=== PATIENT | male | born 1960 | race African-American/Black ===

== ENCOUNTER 2022-12-09 20:55 | Observation (INO) | payer OTHER, SELFPAY ==
--- NOTE | ~2022-12-09 | US_ITS ---
US thoracentesis DATE: 12/11/2022 09:53 INDICATION: Left pleural effusion TECHNIQUE: The purpose of the procedure, technique and potential complications were discussed with e patient. The patient verbalized understanding and gave consent. The patient indicated he has had th is procedure performed on the right side in [place]. An appropriate site for lower left posterolateral intercostal percutaneous access was identified by jered russell. The skin was periosteal Betadine solution. Sterile drape was applied. 1% lidocaine local a nesthetic was administered to the skin and underlying subcutaneous tissues. A single stick thoracente sis needle/catheter was introduced into the pleural space, yielding clear yellow pleural fluid. A sma ll sample was collected for pH determination. Subsequently, 800 CC was drained into vacuum container. The patient tolerated the procedure very well, without complaint or apparent complication. Follow-up chest radiograph reveals no evidence of pneumothorax. IMPRESSION: Successful left thoracentesis yielding 800 CC clear yellow pleural fluid Reviewed, dictated and finalized at [facility]. Reviewed, dictated and finalized at [facility].
--- NOTE | ~2022-12-09 | CT_ITS ---
EXAMINATION: CT diagnostic chest wo con DATE: 12/10/2022 02:20 INDICATION: Left pleural effusion. History of esophageal cancer. TECHNIQUE: Computed tomography (CT) of the chest was performed without intravenous contrast. Automate d exposure control and iterative reconstruction technique were employed. Exam dose: 184.48 mGy-cm to tasneem exam DLP. COMPARISON: 12/09/2022 portable AP chest FINDINGS: Postoperative change from esophagectomy/gastric pull-through for history of esophageal cancer. Normal heart size. No pericardial effusion. Thoracic aortic ectasia and calcification including calci fication of the ascending aorta and aortic arch. There is moderate emphysematous changes of the lungs. There is mild dependent right lower lobe atelectasis. There is greater compressive lower lobe atelectasis associated with mild/moderate left pleural effusi on, in addition to mild lingular basilar atelectasis. No suspicious osteolytic or osteoblastic lesions are noted. Upper abdominal structures are not optimally evaluated on this limited noncontrast examination. IMPRESSION: Status post esophagectomy and gastric pull-through for esophageal cancer Mild/moderate left pleural effusion Moderate emphysema Mild dependent right lower lobe and lingula atelectasis and greater left lower lobe atelectasis Reviewed, dictated and finalized at [facility]. Reviewed, dictated and finalized at [facility].
--- NOTE | ~2022-12-09 | XR_ITS ---
XR_[id number] DATE: 12/11/2022 09:35 INDICATION: Post left thoracentesis examination TECHNIQUE: Upright AP chest on 12/11/2022 at 0935 hours COMPARISON: 12/09/2022 portable AP chest FINDINGS: There is diminished left pleural effusion, with slight residual blunting of the left costop hrenic angle since 12/09/2022. There is mild but diminished atelectasis at the left lung base. Right lung appears clear. The right costophrenic angle appears normal. Normal heart size. Aortic arch calcification, mild aortic unfolding. Surgical clips overlie the left heart and mediastinum. IMPRESSION: Diminished left pleural effusion, diminished atelectasis at the left lung base and no lef t pneumothorax following left thoracentesis a short while ago today Reviewed, dictated and finalized at [facility]. Reviewed, dictated and finalized at [facility]. IMPRESSION: Diminished left pleural effusion, diminished atelectasis at the lef t lung base and no left pneumothorax following left thoracentesis a short while ago today
--- NOTE | ~2022-12-09 | XR_ITS ---
MODIFIED ESOPHAGRAM HISTORY: Dysphagia. TECHNIQUE: Modified barium esophagram was performed on . I administered fluoroscopy and performed the exam with speech pathologist. Patient was seated for lateral fluoroscopic imaging for ingestion of thin liquids, pudding, solids and quantified amounts, followed by thin liquids in uncontrolled amount s. This was recorded on tape. A single fluoroscopic spot image was also recorded. The DAP for this pr ocedure was 0.666 Gycm2. The amount of fluoroscopy time used during this procedure was 1.0 minutes. FINDINGS: Oral stage: Adequate function. Pharyngeal stage: Mild spillage of material over the base of the tongue into the vallecula and pirifo rm sinus immediately prior to the swallow. No laryngeal penetration or aspiration. Cervical/esophageal stage: Adequate function. IMPRESSION: Patient tolerated regular consistency oral feedings in the upright position. Please lissa elate with speech pathologist findings and specific feeding recommendations. Reviewed, dictated and finalized at [facility]. IMPRESSION: Patient tolerated regular consistency oral feedings in the upright position. Please correlate with speech pathologist findings and specific feedi ng recommendations.
--- NOTE | ~2022-12-09 | US_ITS ---
US abdomen limited DATE: 12/11/2022 09:53 INDICATION: Elevated liver function tests TECHNIQUE: Real-time imaging of liver, pancreas, gallbladder COMPARISON: CT chest FINDINGS: The pancreas is obscured by bowel. No hepatic space-occupying mass lesion is evident. Normal hepatopedal portal venous flow direction. The common bile duct measures 2.1 mm, normal. The gallbladder appears to be contracted. No gallstones are evident. Mild ascites. IMPRESSION: Mild ascites Reviewed, dictated and finalized at [facility]. Reviewed, dictated and finalized at location [facility]. IMPRESSION: Mild ascites
--- NOTE | ~2022-12-09 | XR_ITS ---
EXAMINATION: XR chest 1V portable Exam Date/Time: 12/09/2022 21:39 CDT HISTORY: weakness, HTN, DIABETIC Comparison: None. RESULT: Lines, tubes, and devices: Surgical clips overlie the mediastinum. Lungs and pleura: Subsegmental left basilar opacities. Moderate left costophrenic angle blunting. Cardiomediastinal silhouette: Stable. Other: No acute osseous or upper abdominal finding. IMPRESSION: Left basilar airspace disease, likely representing atelectasis. Infection is not excluded. Moderate l eft pleural effusion. Reviewed, dictated and finalized at [facility]. IMPRESSION: Left basilar airspace disease, likely representing atelectasis. Infection is no t excluded. Moderate left pleural effusion.
--- NOTE | 2022-12-09 20:58 | ECG_ITS ---
Measurements Intervals [place] Rate: 40 P: 227 [place]: 141 QRS: -15 QRSD: 88 T: 32 QT: 488 QTc: 400 Interpretive Statements MARKED SINUS BRADYCARDIA PROBABLE ANTEROSEPTAL SC, AGE UNDETERMINED NONSPECIFIC T-WAVE ABNORMALITY ABNORMAL ECG NO PREVIOUS ECG AVAILABLE FOR COMPARISON Electronically Signed On 12-10-2022 9:15:[address] M.D.
[2022-12-09 21:02] VITALS: BP 113/89; PULSE 48; RESP 18; TEMP 36.2; O2SAT 100
[2022-12-09 21:15] VITALS: BP 105/88; PULSE 42; RESP 16; O2SAT 100
[2022-12-09 21:15] LABS: Glucose Point of Care 72 mg/dl (65-105)
[2022-12-09] MEDS: DEXTROSE 50% 25 GM/50 ML SYRINGE IV PUSH (21:18)
[2022-12-09] MEDS: SODIUM CHLORIDE 0.9% IV 1,000 ML 999 ML (21:34)
[2022-12-09 21:41] LABS: Basophils Percent Auto 1.6 % (0.2-1.2); Eosinophils Percent Auto 1.2 % (0-4.4); Hematocrit 26.6 % (42.0-52.0); Hemoglobin 9.3 g/dL (14.0-18.0); Immature Granulocyte Absolute 0.01 K/mm3 (0.00-0.031); Immature Granulocyte Percent A 0.4 % (0-0.5); Lymphocytes Percent Auto 27.9 % (18.3-44.2); Mean Corpuscular Hemoglobin 33.5 pg (26-34); Mean Corpuscular Volume 95.7 fl (80-100); Mean Platelet Volume 9.9 fl (7.4-10.4); Monocytes Absolute Auto 0.3 K/mm3 (0.1-0.6); Monocytes Percent Auto 10.4 % (2.6-8.5); Neutrophils Absolute Auto 1.5 K/mm3 (1.3-6.7); Neutrophils Percent Auto 58.5 % (45.5-73.1); Platelet Count Result 224 k/mm3 (150-375); Red Blood Count 2.78 M/mm3 (4.6-6.20); Red Cell Distribution Width 16.6 % (11.5-14.5); White Blood Count 2.5 K/mm3 (4.5-10.0)
[2022-12-09 21:52] LABS: Alanine Aminotransferase 323 U/L (6-50); Albumin Level 3.3 g/dL (3.5-5.1); Alkaline Phosphatase 160 U/L (38-126); Anion Gap 3 mmol/L (8-16); Aspartate Amino Transferase 394 U/L (17-59); Bilirubin,Total 0.4 mg/dL (0.2-1.3); Blood Urea Nitrogen 10 mg/dL (9-20); Calcium 8.2 mg/dL (8.4-10.2); Carbon Dioxide 26 mmol/L (22-30); Chloride 104 mmol/L (98-107); Estimated CRCL calculation 51 ml/min; Estimated Glomerular Filt Rate > 60; Glucose 99 mg/dL (65-110); INR 1.1; Magnesium 1.9 mg/dL (1.6-2.3); Potassium 3.7 mmol/L (3.4-5.0); Prothrombin Time 14.7 Seconds (11.1-14.7); Sodium 133 mmol/L (137-145)
[2022-12-09 21:53] LABS: Partial Thromboplastin Time 30.9 SECONDS (22.3-36.8)
[2022-12-09 22:03] LABS: NT Pro B Type Natriuretic Pept 452 pg/mL (19.9-100); Troponin I < 0.012 ng/mL (0.000-0.034)
[2022-12-09 22:43] LABS: Glucose Point of Care 118 mg/dl (65-105)
[2022-12-09 23:00] VITALS: BP 122/87; PULSE 42; RESP 15; O2SAT 100
[2022-12-09 23:28] LABS: Lactic Acid Reflex 0.7 mmol/L (0.7-2.0)
--- NOTE | 2022-12-09 23:29 | ED.GENADULT ---
HPI - General Adult General Chief complaint: Recheck/Abnormal Lab/Rx Stated complaint: low glucose Time Seen by Provider: 12/09/22 21:04 History of Present Illness HPI narrative: Patient is a 62-year-old gentleman who presents the emergency department with chief complaint of weakness slow heart rate and hypoglycemia. The patient is currently visiting from the [facility] and reports that he has history of prostate cancer and also gastric cancer has had a revision and reports that he takes oral medications for his diabetes and today felt extremely weak and was having chills over his body the patient reports no vomiting no chest pain no shortness of breath reports that he just feels weak and rundown. When EMS was called they found to have a blood sugar in the 50s he was given D10 prior to arrival by EMS and blood sugars were still in the 60s and 70s the patient was given amp of D50 in the emergency department here Related Data Allergies Allergy/AdvReac Type Severity Reaction Status Date / Time No Known Allergies Allergy Verified 12/09/22 21:17 Review of Systems Review of Systems: A 10 system review of systems was completed on the patient and is negative except for what is stated in the HPI. Nursing and ancillary documentation was reviewed. Exam Narrative: GENERAL: Well-appearing, well-nourished, and in no acute distress. HEAD: Normocephalic, atraumatic. EYES: PERRLA and EOMI. ENT: Nares clear, no rhinorrhea or epistaxis. Mucous membranes moist. NECK: Supple. CHEST: Clear to auscultation. No respiratory distress. HEART: Irregular bradycardic rate and rhythm. No murmur heard. Normal peripheral pulses. ABDOMEN: Soft, nontender, nondistended, normal active bowel sounds. EXTREMITIES: Normal range of motion. No edema. SKIN: Warm, dry, no rash. NEURO: No focal deficits. Alert and oriented x3. PSYCH: Normal mood and affect. Course Vital Signs Vital signs: Vital Signs Temperature 36.2 C L 12/09/22 21:02 Pulse Rate 48 L 12/09/22 21:02 Respiratory Rate 18 12/09/22 21:02 Blood Pressure 113/89 12/09/22 21:02 Pulse Oximetry 100 12/09/22 21:02 Oxygen Delivery Room Air 12/09/22 21:02 Temperature 36.2 C L 12/09/22 21:02 Pulse Rate 42 L 12/09/22 23:00 Respiratory Rate 15 12/09/22 23:00 Blood Pressure 122/87 12/09/22 23:00 Pulse Oximetry 100 12/09/22 23:00 Oxygen Delivery Room Air 12/09/22 21:02 Medical Decision Making MDM Narrative Medical decision making narrative: Differential diagnosis includes sick sinus syndrome, hypoglycemia electrolyte abnormality renal failure, hyperkalemia hypokalemia, renal failure Laboratory studies were obtained on the patient which showed a white count of 2.5 hemoglobin is 9.3 electrolytes are within normal limits glucose after receiving D50 was 99 calcium was 8.2 liver enzymes were moderately elevated with a bilirubin of 0.4 but an AST of 394 and ALT of 324 alk phos is 160 the patient had no abdominal pain with this troponin was less than 0.012 BNP was 452 EKG was atrial fibrillation with a slow ventricular response The patient has been observed in the emergency department and has had heart rates that dipped down to 37 but the patient has had a stable blood pressure with a blood pressure of 120/85 Chest x-ray showed: Left basilar airspace disease, likely representing atelectasis. Infection is not excluded. Moderate left pleural effusion. Given the findings of the chest x-ray the patient will be started on IV antibiotics for possible pneumonia. The case was discussed with the hospitalist and the patient will be admitted for observation. Vital Signs Vital Signs: Vital Signs Temperature 36.2 C L 12/09/22 21:02 Pulse Rate 48 L 12/09/22 21:02 Respiratory Rate 18 12/09/22 21:02 Blood Pressure 113/89 12/09/22 21:02 Pulse Oximetry 100 12/09/22 21:02 Oxygen Delivery Room Air 12/09/22 21:02 Temperature 36.2 C L 12/09/22 2
--- NOTE | 2022-12-09 23:39 | PM.IMHP ---
H&P: HPI History of Present Illness Date/Time: 12/09/22 23:39 Chief Complaint: Generalized weakness Narrative: This is a 62-year-old male with past medical history significant for esophageal cancer status post surgical resection, over a year ago, patient presents to the emergency room due to generalized weakness, body aches and pains, poor appetite. Patient was brought via EMS he was found to have a blood sugar in the 50s was given D10 and was brought to the emergency room he was found to have a heart rate in the 40s and received a number of the 50. Patient states that he has been feeling very tired fatigue very weak wanted to play basketball and could not had low stamina, preliminary workup was significant for chest x-ray was reported as: EXAMINATION:? XR chest 1V portable Exam Date/Time:? 12/09/2022 21:39 CDT HISTORY: weakness,? HTN, DIABETIC ? Comparison:? None. RESULT: Lines, tubes, and devices:? Surgical clips overlie the mediastinum. Lungs and pleura:? Subsegmental left basilar opacities. Moderate left costophrenic angle blunting. Cardiomediastinal silhouette:? Stable. Other:? No acute osseous or upper abdominal finding. ? IMPRESSION: Left basilar airspace disease, likely representing atelectasis. Infection is not excluded. Moderate left pleural effusion. Review of Systems Review of Systems: Fat fatigue, generalized malaise, poor appetite, body aches and pains. Constitutional: Constitutional: Reports fatigue, Reports lethargy, Reports malaise, Denies night sweats, Reports poor appetite, Reports weakness and Reports weight loss Eyes: Eyes: Denies change in vision ENT: Denies dysphagia and Denies odynophagia Cardiovascular: Cardiovascular: Denies chest pain, Denies radiating jaw, neck or arm pain and Denies palpitations Respiratory: Respiratory: Denies chest congestion, Denies cough and Denies excessive phlegm production Gastrointestinal: Gastrointestinal: Denies abdominal pain, Denies dyspepsia, Denies heartburn, Denies diarrhea, Denies nausea and Denies vomiting Genitourinary: Genitourinary: Reports no additional male genitourinary complaints and Reports as per HPI Musculoskeletal: Musculoskeletal: Reports back pain Integumentary/Breasts: Skin/Breast: Denies rash Neurologic: Denies focal weakness and Denies Sensory deficit (Neuro) Psychiatric: Psychiatric: Reports no additional psychiatric complaints and Reports as per HPI Endocrine: Endocrine: Denies cold intolerance, Reports fatigue, Denies flushing, Denies heat intolerance, Denies polyphagia, Denies polydipsia, Denies polyuria and Denies palpitations Hematologic/Lymphatic: Hematologic/Lymphatic: Reports no additional hematologic/lymphatic complaints and Reports as per HPI Allergic/Immunologic: Allergic/Immunologic: Reports no additional allergic/immunologic complaints and Reports as per HPI Meds Home Medications and Allergies Allergies Allergy/AdvReac Type Severity Reaction Status Date / Time No Known Allergies Allergy Verified 12/09/22 21:17 Vital Signs Vital Signs - 24 hr 12/09/22 21:02 12/09/22 21:15 12/09/22 23:00 Temperature 97.1 F L Pulse Rate 48 L 42 L 42 L Respiratory Rate 18 16 15 Blood Pressure 113/89 105/88 122/87 Pulse Oximetry 100 100 100 Oxygen Delivery Room Air Exam Narrative: Patient is laying in a stretcher Const: General: comfortable, no acute distress, well developed, alert, awake and average body habitus Nutritional Appearance: thin Orientation/consciousness: patient oriented x3 HENMT: Head: normal to inspection, normocephalic and atraumatic Ears: hearing grossly normal bilaterally Face/Nose/Sinus: normal facial exam Face and sinus: normal facial exam Eyes: General: appearance normal, both eyes and all related structures Pupils: Equal, round and reactive pupils present EOM: EOMs intact bilaterally Neck: Neck: full ROM, no lymphadenopathy and no JVD Thyroid: thyroid normal Lymph
[2022-12-09 23:56] LABS: Glucose Point of Care 84 mg/dl (65-105)
[2022-12-10] VITALS (11 sets, daily range): BP systolic 103–136; BP diastolic 72–87; PULSE 45–91; RESP 16–20; TEMP 36.3–37.6; O2SAT 100; BMI 20.7; BMI 22.3
[2022-12-10 00:01] LABS: Appearance Urine Clear (Clear); Bilirubin Urine Negative (Negative); Blood Urine Negative (Negative); Color Urine Yellow (Yellow); Glucose Urine UA Trace mg/dL (Negative); Ketones Urine Negative (Negative); Leukocyte Esterase Ur Negative LEU/UL (Negative); Nitrate Urine Negative (Negative); Protein Urine Negative (Negative); Urobilinogen Urine 0.2 mg/dL (<2.0)
[2022-12-10 00:13] LABS: Add Urine Microscopic? NO
--- NOTE | 2022-12-10 00:25 | PC.NURSE ---
Sister Nila Jaime [phone]
[2022-12-10 01:02] LABS: Troponin I < 0.012 ng/mL (0.000-0.034)
[2022-12-10 01:22] LABS: Glucose Point of Care 58 mg/dl (65-105)
[2022-12-10] MEDS: DEXTROSE 50% 25 GM/50 ML SYRINGE IV PUSH ×2 (01:22→12:16)
--- NOTE | 2022-12-10 01:28 | PC.NURSE ---
When this RN attempted to flush IV to right AC, but shouted in pain. On assessment IV has infiltrated. IV removed. Attempted to flush IV in left AC but IV would not flush. IV removed. oyster farmer Bob notified and requested ultrasound IV.
[2022-12-10] MEDS: AZITHROMYCIN 500 MG/NS 250 ML 500 MG/250 ML BAG 250 MG IVPB ×2 (01:40→23:52)
[2022-12-10 02:09] LABS: Glucose Point of Care 85 mg/dl (65-105)
--- NOTE | 2022-12-10 02:09 | ADMGEN ---
This patient, Garrick Jaime, was admitted to IMU Room 209-01. Patient/family oriented to hospital policies and general routines including ID bracelet, bed and alarms, visiting hours, pain management, procedures, bathroom and other care routines, personal items, smoking policy, room service/diet, and visiting hours. Information on how to activate the Rapid Response Team has been discussed. Patient/Family are encouraged to report perceived risks to care and to ask questions if they do not understand what they are told or what they should do.
[2022-12-10] MEDS: DEXTROSE 5% 1,000 ML 1,000 ML 100 ML IVPB (02:47)
--- NOTE | 2022-12-10 03:15 | PC.NURSE ---
Patient unaware of what medications he is currently taking. States that he receives all medications from a [facility] in [place], [place]. RN on days will have to call to get updated list of medications.
[2022-12-10 04:44] LABS: Glucose Point of Care 94 mg/dl (65-105)
--- NOTE | 2022-12-10 05:07 | PC.NURSE ---
Called [facility] for med list. Pharmacist states the ONLY med the patient has had filled recently is lisinopril 10mg daily.
[2022-12-10 10:33] LABS: Hemoglobin 9.6 g/dL (14.0-18.0); Mean Corpuscular HGB Conc 34.3 g/dl (32-36); Mean Corpuscular Hemoglobin 33.2 pg (26-34); Mean Corpuscular Volume 96.9 fl (80-100); Mean Platelet Volume 9.3 fl (7.4-10.4); Platelet Count Result 233 k/mm3 (150-375); Red Blood Count 2.89 M/mm3 (4.6-6.20); Red Cell Distribution Width 16.9 % (11.5-14.5); White Blood Count 2.4 K/mm3 (4.5-10.0)
[2022-12-10 10:52] LABS: Alanine Aminotransferase 293 U/L (6-50); Albumin Level 2.9 g/dL (3.5-5.1); Alkaline Phosphatase 158 U/L (38-126); Anion Gap -1 mmol/L (8-16); Aspartate Amino Transferase 394 U/L (17-59); Bilirubin,Total 0.4 mg/dL (0.2-1.3); Blood Urea Nitrogen 9 mg/dL (9-20); Calcium 7.5 mg/dL (8.4-10.2); Carbon Dioxide 29 mmol/L (22-30); Chloride 105 mmol/L (98-107); Estimated CRCL calculation 60 ml/min; Estimated Glomerular Filt Rate > 60; Glucose 102 mg/dL (65-110); Potassium 3.7 mmol/L (3.4-5.0); Sodium 133 mmol/L (137-145)
[2022-12-10 11:42] LABS: Glucose Point of Care 52 mg/dl (65-105)
[2022-12-10] MEDS: ENOXAPARIN 40 MG/0.4 ML SYRINGE SUB-Q (12:20)
[2022-12-10 13:05] LABS: Glucose Point of Care 220 mg/dl (65-105)
[2022-12-10] MEDS: DEXTROSE 10% 1,000 ML 100 ML IV CONT ×2 (13:26→23:47)
--- NOTE | 2022-12-10 13:32 | PM.IMPN ---
Progress Note: A&P Assessment and Plan (1) Pneumonia: Code(s): J18.9 - Pneumonia, unspecified organism Status: Acute (2) Bradycardia: Code(s): R00.1 - Bradycardia, unspecified Status: Acute (3) Pleural effusion: Code(s): J90 - Pleural effusion, not elsewhere classified Status: Acute (4) Hypoglycemia: Code(s): E16.2 - Hypoglycemia, unspecified Status: Acute Plan This is a 62-year-old dontae who presents to the ED with generalized weakness; slow heart rate and hypoglycemia. hx of gastric ancer s/p esophagectomy underlyiing daibrtes, having chills. ems was called was found to have hypoglycemia and 50s. Was given D10. Blood sugar was statin 60s 70s upon arrival to the ER was given D50. A been started on D5 drip. Laboratory evaluation revealed leukopenia 2.5 and anemia of 9.3. He was bradycardic with sinus bradycardia. LFTs were elevated as well. Blood pressure was stable. Chest x-ray was showing possible pneumonia. CT chest was done which showed moderate emphysema with left pleural effusion. No prior records available. He denies any cough. With generalized weakness and chills will screen for underlying infection. IV antibiotics has been empirically started. Left pleural effusion unknown whether his chronic will ask for ultrasound-guided thoracentesis for pleural fluid analysis. Hypoglycemia is unclear etiology. Will check thyroid function due to bradycardia associated. Check other hypoglycemia panel change D5 to D10 due to persistent hypoglycemia. Reports chronic pain in white lumbar area where the drains were placed from her is surgery. Used to be on oxycodone. This is been his major complaint during my visit. I am not able to get into PDMP but reports that his been getting oxycodone in the past. Of suggested him needs to see a pain management doctor as an outpatient basis for ongoing pain control. Will check right upper quadrant ultrasound to see if there is anything new. Other vitals are fairly stable. Check hepatitis panel check HIV Subjective Date/time seen: 12/10/22 13:32 Interval history: Chart reviewed. Reports pain in his right lower chest to right back. This is been ongoing since many years since the surgery with a drain was placed. No nausea vomiting. No abdominal pain. Was having chills and feeling drowned yesterday. Review of Systems Review of Systems: All systems reviewed & are unremarkable except as noted in HPI and below Exam Narrative: GENERAL: Well-appearing, well-nourished, and in no acute distress. HEAD: Normocephalic, atraumatic. EYES: PERRLA and EOMI. ENT: Nares clear, no rhinorrhea or epistaxis.? Mucous membranes moist. NECK: Supple. CHEST: Clear to auscultation.? No respiratory distress. HEART: sinus bradycardic rate and rhythm.? No murmur heard.? Normal peripheral pulses. ABDOMEN: Soft, nontender, nondistended, normal active bowel sounds. EXTREMITIES: Normal range of motion.? No edema. SKIN: Warm, dry, no rash. NEURO: No focal deficits.? Alert and oriented x3. PSYCH: Normal mood and affect. Objective Data Vital Signs Vital Signs: Vital Signs - 24 hr 12/09/22 21:02 12/09/22 21:15 12/09/22 23:00 Temperature 97.1 F L Pulse Rate 48 L 42 L 42 L Respiratory Rate 18 16 15 Blood Pressure 113/89 105/88 122/87 Pulse Oximetry 100 100 100 Oxygen Delivery Room Air 12/10/22 02:34 12/10/22 02:16 12/10/22 04:00 Temperature 97.3 F L Pulse Rate 50 L 46 L Respiratory Rate 16 Blood Pressure 109/82 Pulse Oximetry 100 Oxygen Delivery Room Air 12/10/22 04:00 12/10/22 06:00 12/10/22 08:00 Temperature 97.4 F L 98.1 F Pulse Rate 48 L 45 L 53 L Respiratory Rate 16 18 Blood Pressure 113/85 103/72 Pulse Oximetry 100 100 Oxygen Delivery 12/10/22 12:00 Temperature 99.6 F Pulse Rate 62 Respiratory Rate 16 Blood Pressure 124/87 Pulse Oximetry 100 Oxygen Delivery Intake/Output Intake/Output: Intake & Ou
[2022-12-10 14:44] LABS: Basophils Percent Auto 1.5 % (0.2-1.2); Eosinophils Percent Auto 1.1 % (0-4.4); Hematocrit 28.8 % (42.0-52.0); Hemoglobin 9.7 g/dL (14.0-18.0); Immature Granulocyte Absolute 0.01 K/mm3 (0.00-0.031); Immature Granulocyte Percent A 0.4 % (0-0.5); Lymphocytes Absolute Auto 0.65 K/mm3 (0.9-3.2); Mean Corpuscular HGB Conc 33.7 g/dl (32-36); Mean Corpuscular Hemoglobin 33.1 pg (26-34); Mean Corpuscular Volume 98.3 fl (80-100); Mean Platelet Volume 9.4 fl (7.4-10.4); Monocytes Absolute Auto 0.2 K/mm3 (0.1-0.6); Monocytes Percent Auto 7.4 % (2.6-8.5); Neutrophils Absolute Auto 1.8 K/mm3 (1.3-6.7); Neutrophils Percent Auto 65.6 % (45.5-73.1); Platelet Count Result 211 k/mm3 (150-375); Red Blood Count 2.93 M/mm3 (4.6-6.20); Red Cell Distribution Width 17.1 % (11.5-14.5); White Blood Count 2.7 K/mm3 (4.5-10.0)
[2022-12-10 15:12] LABS: Acetaminophen < 10 ug/mL (10-30); Anion Gap 4 mmol/L (8-16); Blood Urea Nitrogen 10 mg/dL (9-20); Carbon Dioxide 25 mmol/L (22-30); Chloride 104 mmol/L (98-107); Estimated CRCL calculation 55 ml/min; Estimated Glomerular Filt Rate > 60; Glucose 67 mg/dL (65-110); Potassium 3.8 mmol/L (3.4-5.0); Salicylate < 1.0 mg/dL (2-20); Sodium 133 mmol/L (137-145)
[2022-12-10 15:42] LABS: Hepatitis B Surface Antigen Negative (Negative)
[2022-12-10 15:48] LABS: HAV RESULT Negative (Negative); Hepatitis B Core IgM Result Negative (Negative)
[2022-12-10 15:54] LABS: HIV 1/2 Ab P24 Ag Result Negative (Negative)
[2022-12-10 16:00] LABS: Hepatitis C Virus Antibody Negative (Negative)
[2022-12-10 18:27] LABS: Glucose Point of Care 138 mg/dl (65-105)
[2022-12-10 19:56] LABS: Glucose Point of Care 93 mg/dl (65-105)
[2022-12-10] MEDS: HYDROmorphone HCL INJ (*CRX) 1 MG/ML SYR IV PUSH (22:20)
[2022-12-10 23:31] LABS: Amphetamine Screen Urine Negative (Negative); Barbiturate Screen Urine Negative (Negative); Benzodiazepines Screen Urine Negative (Negative); Cannabinoid Screen Urine Negative (Negative); Cocaine Screen Urine Negative (Negative); Methadone Screen Urine Negative (Negative); Opiate Screen Urine Negative (Negative); Phencyclidine Screen Urine Negative (Negative)
[2022-12-10 23:59] LABS: Glucose Point of Care 118 mg/dl (65-105)
[2022-12-11] VITALS (15 sets, daily range): BP systolic 104–115; BP diastolic 73–89; PULSE 40–65; RESP 14–20; TEMP 36.3–36.8; O2SAT 97–100
[2022-12-11] MEDS: DEXTROSE 50% 25 GM/50 ML SYRINGE IV PUSH (01:30)
[2022-12-11 03:16] LABS: Glucose Point of Care 204 mg/dl (65-105)
[2022-12-11 03:16] LABS: Glucose Point of Care 156 mg/dl (65-105)
[2022-12-11 03:16] LABS: Glucose Point of Care 66 mg/dl (65-105)
[2022-12-11] MEDS: HYDROCORTISONE SODIUM SUCCINATE 100 MG/2 ML VIAL IV PUSH (03:44)
[2022-12-11] MEDS: GLUCAGON FOR INJ 1 MG VIAL IM (03:45)
[2022-12-11 06:23] LABS: Hematocrit 29.2 % (42.0-52.0); Hemoglobin 9.8 g/dL (14.0-18.0); Mean Corpuscular HGB Conc 33.6 g/dl (32-36); Mean Corpuscular Hemoglobin 32.8 pg (26-34); Mean Corpuscular Volume 97.7 fl (80-100); Mean Platelet Volume 9.5 fl (7.4-10.4); Platelet Count Result 228 k/mm3 (150-375); Red Blood Count 2.99 M/mm3 (4.6-6.20); Red Cell Distribution Width 17.2 % (11.5-14.5); White Blood Count 2.2 K/mm3 (4.5-10.0)
[2022-12-11 06:34] LABS: INR 1.1; Prothrombin Time 14.8 Seconds (11.1-14.7)
[2022-12-11 06:35] LABS: Partial Thromboplastin Time 30.9 SECONDS (22.3-36.8)
[2022-12-11 06:50] LABS: Alanine Aminotransferase 279 U/L (6-50); Alkaline Phosphatase 142 U/L (38-126); Anion Gap 0 mmol/L (8-16); Aspartate Amino Transferase 291 U/L (17-59); Bilirubin,Total 0.4 mg/dL (0.2-1.3); Blood Urea Nitrogen 9 mg/dL (9-20); Calcium 7.6 mg/dL (8.4-10.2); Carbon Dioxide 27 mmol/L (22-30); Chloride 103 mmol/L (98-107); Estimated CRCL calculation 66 ml/min; Estimated Glomerular Filt Rate > 60; Glucose 102 mg/dL (65-110); Potassium 4.2 mmol/L (3.4-5.0); Sodium 130 mmol/L (137-145)
[2022-12-11 08:37] LABS: Glucose Point of Care 130 mg/dl (65-105)
[2022-12-11 09:45] LABS: pH Pleural Fluid 7.474 (7.210-7.500)
[2022-12-11] MEDS: HYDROcodone/acetaminophen (*CRX) 5-325 MG TABLET 1 TAB PO ×2 (10:03→21:24)
[2022-12-11] MEDS: ENOXAPARIN 40 MG/0.4 ML SYRINGE SUB-Q (10:05)
--- NOTE | 2022-12-11 10:13 | P.PNIM_ITS ---
Progress Note: A&P Assessment and Plan (1) Pneumonia: Code(s): J18.9 - Pneumonia, unspecified organism Status: Acute (2) Bradycardia: Code(s): R00.1 - Bradycardia, unspecified Status: Acute (3) Pleural effusion: Code(s): J90 - Pleural effusion, not elsewhere classified Status: Acute (4) Hypoglycemia: Code(s): E16.2 - Hypoglycemia, unspecified Status: Acute Plan This is a 62-year-old dontae who presents to the ED with generalized weakness; slow heart rate and hypoglycemia. hx of gastric ancer s/p esophagectomy underlyiing daibrtes, having chills. ems was called was found to have hypoglycemia and 50s. Was given D10. Blood sugar was statin 60s 70s upon arrival to the ER was given D50. A been started on D5 drip. Laboratory evaluation revealed leukopenia 2.5 and anemia of 9.3. He was bradycardic with sinus bradycardia. LFTs were elevated as well. Blood pressure was stable. Chest x-ray was showing possible pneumonia. CT chest was done which showed moderate emphysema with left pleural effusion. No prior records available. He denies any cough. With generalized weakness and chills will screen for underlying infection. IV antibiotics has been empirically started. Left pleural effusion unknown whether his chronic will ask for ultrasound-guided thoracentesis for pleural fluid analysis. Hypoglycemia is unclear etiology. Will check thyroid function due to bradycardia associated. Check other hypoglycemia panel change D5 to D10 due to persistent hypoglycemia. Reports chronic pain in white lumbar area where the drains were placed from her is surgery. Used to be on oxycodone. This is been his major complaint during my visit. I am not able to get into PDMP but reports that his been getting oxycodone in the past. Of suggested him needs to see a pain management doctor as an outpatient basis for ongoing pain control. Will check right upper quadrant ultrasound to see if there is anything new. Other vitals are fairly stable. Check hepatitis panel check HIV 12/11/2022:This is a 62-year-old dontae who presents to the ED with generalized weakness; slow heart rate and hypoglycemia. hx of esophageal cancer s/p esophage ctomy underlyiing daibrtes, having chills. ems was called was found to have hypoglycemia and 50s. Was given D10. Blood sugar was statin 60s 70s upon arrival to the ER was given D50. A been started on D5 drip. Laboratory evaluation revealed leukopenia 2.5 and anemia of 9.3. He was bradycardic with sinus bradycardia. LFTs were elevated as well. Blood pressure was stable. Chest x-ray was showing possible pneumonia. CT chest was done which showed moderate emphysema with left pleural effusion. No prior records available. He denies any cough. With generalized weakness and chills will screen for underlying infection. IV antibiotics has been empirically started. Left pleural effusion unknown whether his chronic, status post ultrasound-guided thoracentesis for pleural fluid analysis. 800 cc of pleural fluid drained. Hypoglycemia is unclear etiology. Will check thyroid function due to bradycardia associated. Check other hypoglycemia panel change D5 to D10 due to persistent hypoglycemia. Reports chronic pain in right lumbar area where the drains were placed from his is surgery. Used to be on oxycodone. This is been his major complaint during my visit. I am not able to get into PDMP but reports that his been getting oxycodone in the past. Of suggested him needs to see a pain management doctor as an outpatient basis for ongoing pain control. Right upper quadrant ultrasound pending report. LFTs stable. Hypoglycemia stable will switch to D5. Post thoracentesis chest x-ray with resolution of l
[2022-12-11 10:15] LABS: Appearance Pleural Fluid Clear (Clear); Color Pleural Fluid Yellow (Colorless); Nucleated Cell Pleural Fluid 137 /uL (0-1000); Pleural fluid source Pleural fluid
[2022-12-11 10:16] LABS: Lymphocytes Pleural Fluid 46 %; Macrophages Pleural Fluid 16 %; Mesothelial Cells Pleural Flui 6 %; Monocytes Pleural Fluid 2 %; Neutrophils Pleural Fluid 30 % (0-25); RBC Pleural Fluid < 2000 /uL (0-0)
[2022-12-11] MEDS: DEXTROSE 5% 1,000 ML 1,000 ML 100 ML IV CONT ×2 (11:48→21:24)
[2022-12-11 12:21] LABS: Glucose Point of Care 167 mg/dl (65-105)
[2022-12-11 15:37] LABS: Free T4 Free Thyroxine Reflex < 0.07 ng/dL (0.78-2.19)
[2022-12-11 16:56] LABS: Glucose Point of Care 109 mg/dl (65-105)
[2022-12-11 20:08] LABS: Glucose Point of Care 108 mg/dl (65-105)
[2022-12-11 23:36] LABS: Glucose Point of Care 142 mg/dl (65-105)
[2022-12-11] MEDS: AZITHROMYCIN 500 MG/NS 250 ML 500 MG/250 ML BAG 250 MG IVPB (23:58)
[2022-12-12] VITALS (10 sets, daily range): BP systolic 91–124; BP diastolic 61–89; PULSE 51–71; RESP 18–20; TEMP 36.4–36.7; O2SAT 94–99
[2022-12-12 05:27] LABS: Basophils Percent Auto 0.8 % (0.2-1.2); Eosinophils Percent Auto 0.5 % (0-4.4); Hematocrit 29.1 % (42.0-52.0); Hemoglobin 10.1 g/dL (14.0-18.0); Immature Granulocyte Absolute 0.01 K/mm3 (0.00-0.031); Immature Granulocyte Percent A 0.3 % (0-0.5); Lymphocytes Absolute Auto 0.89 K/mm3 (0.9-3.2); Lymphocytes Percent Auto 22.9 % (18.3-44.2); Mean Corpuscular HGB Conc 34.7 g/dl (32-36); Mean Corpuscular Hemoglobin 33.3 pg (26-34); Mean Platelet Volume 9.2 fl (7.4-10.4); Monocytes Absolute Auto 0.4 K/mm3 (0.1-0.6); Monocytes Percent Auto 9.5 % (2.6-8.5); Neutrophils Absolute Auto 2.6 K/mm3 (1.3-6.7); Platelet Count Result 233 k/mm3 (150-375); Red Blood Count 3.03 M/mm3 (4.6-6.20); Red Cell Distribution Width 16.4 % (11.5-14.5); White Blood Count 3.9 K/mm3 (4.5-10.0)
[2022-12-12 05:38] LABS: Alanine Aminotransferase 256 U/L (6-50); Albumin Level 2.8 g/dL (3.5-5.1); Alkaline Phosphatase 140 U/L (38-126); Anion Gap -1 mmol/L (8-16); Aspartate Amino Transferase 220 U/L (17-59); Bilirubin,Total 0.2 mg/dL (0.2-1.3); Blood Urea Nitrogen 7 mg/dL (9-20); Calcium 7.7 mg/dL (8.4-10.2); Carbon Dioxide 30 mmol/L (22-30); Chloride 100 mmol/L (98-107); Estimated CRCL calculation 60 ml/min; Estimated Glomerular Filt Rate > 60; Glucose 68 mg/dL (65-110); Magnesium 1.6 mg/dL (1.6-2.3); Potassium 4.1 mmol/L (3.4-5.0); Sodium 129 mmol/L (137-145)
[2022-12-12 08:14] LABS: Glucose Point of Care 375 mg/dl (65-105)
[2022-12-12 08:33] LABS: Glucose Point of Care 124 mg/dl (65-105)
--- NOTE | 2022-12-12 08:46 | PC.NURSE ---
Blood sugar 375 was error, recheck resulted 124. Will continue to monitor closely.
[2022-12-12] MEDS: ENOXAPARIN 40 MG/0.4 ML SYRINGE SUB-Q (09:00)
[2022-12-12] MEDS: DEXTROSE 5% 1,000 ML 1,000 ML 100 ML IV CONT (09:01)
[2022-12-12] MEDS: LEVOTHYROXINE SODIUM INJ 100 MCG/5 ML VIAL 37.5 MCG IV PUSH (10:22)
[2022-12-12 12:50] LABS: Glucose Point of Care 176 mg/dl (65-105)
--- NOTE | 2022-12-12 13:46 | PM.IMPN ---
Progress Note: A&P Assessment and Plan (1) Pneumonia: Code(s): J18.9 - Pneumonia, unspecified organism Status: Acute (2) Bradycardia: Code(s): R00.1 - Bradycardia, unspecified Status: Acute (3) Pleural effusion: Code(s): J90 - Pleural effusion, not elsewhere classified Status: Acute (4) Hypoglycemia: Code(s): E16.2 - Hypoglycemia, unspecified Status: Acute Plan This is a 62-year-old dontae who presents to the ED with generalized weakness; slow heart rate and hypoglycemia. hx of gastric ancer s/p esophagectomy underlyiing daibrtes, having chills. ems was called was found to have hypoglycemia and 50s. Was given D10. Blood sugar was statin 60s 70s upon arrival to the ER was given D50. A been started on D5 drip. Laboratory evaluation revealed leukopenia 2.5 and anemia of 9.3. He was bradycardic with sinus bradycardia. LFTs were elevated as well. Blood pressure was stable. Chest x-ray was showing possible pneumonia. CT chest was done which showed moderate emphysema with left pleural effusion. No prior records available. He denies any cough. With generalized weakness and chills will screen for underlying infection. IV antibiotics has been empirically started. Left pleural effusion unknown whether his chronic will ask for ultrasound-guided thoracentesis for pleural fluid analysis. Hypoglycemia is unclear etiology. Will check thyroid function due to bradycardia associated. Check other hypoglycemia panel change D5 to D10 due to persistent hypoglycemia. Reports chronic pain in white lumbar area where the drains were placed from her is surgery. Used to be on oxycodone. This is been his major complaint during my visit. I am not able to get into PDMP but reports that his been getting oxycodone in the past. Of suggested him needs to see a pain management doctor as an outpatient basis for ongoing pain control. Will check right upper quadrant ultrasound to see if there is anything new. Other vitals are fairly stable. Check hepatitis panel check HIV 12/11/2022:This is a 62-year-old dontae who presents to the ED with generalized weakness; slow heart rate and hypoglycemia. hx of esophageal cancer s/p esophagectomy underlyiing daibrtes, having chills. ems was called was found to have hypoglycemia and 50s. Was given D10. Blood sugar was statin 60s 70s upon arrival to the ER was given D50. A been started on D5 drip. Laboratory evaluation revealed leukopenia 2.5 and anemia of 9.3. He was bradycardic with sinus bradycardia. LFTs were elevated as well. Blood pressure was stable. Chest x-ray was showing possible pneumonia. CT chest was done which showed moderate emphysema with left pleural effusion. No prior records available. He denies any cough. With generalized weakness and chills will screen for underlying infection. IV antibiotics has been empirically started. Left pleural effusion unknown whether his chronic, status post ultrasound-guided thoracentesis for pleural fluid analysis. 800 cc of pleural fluid drained. Hypoglycemia is unclear etiology. Will check thyroid function due to bradycardia associated. Check other hypoglycemia panel change D5 to D10 due to persistent hypoglycemia. Reports chronic pain in right lumbar area where the drains were placed from his is surgery. Used to be on oxycodone. This is been his major complaint during my visit. I am not able to get into PDMP but reports that his been getting oxycodone in the past. Of suggested him needs to see a pain management doctor as an outpatient basis for ongoing pain control. Right upper quadrant ultrasound pending report. LFTs stable. Hypoglycemia stable will switch to D5. Post thoracentesis chest x-ray with resolution of left effusion. Hepatitis panel negative. Estimate if in level is negative. HIV negative. Start hydrocodone for pain control. Mildly hyponatremic 12/12/2022:This is a 62-year-old dontae who presents to the ED with gener
[2022-12-12 19:31] LABS: Glucose Point of Care 81 mg/dl (65-105)
[2022-12-12] MEDS: HYDROcodone/acetaminophen (*CRX) 5-325 MG TABLET 1 TAB PO (20:09)
[2022-12-12 23:22] LABS: Glucose Point of Care 81 mg/dl (65-105)
[2022-12-13] VITALS (9 sets, daily range): BP systolic 111–117; BP diastolic 68–76; PULSE 52–75; RESP 18; TEMP 36.3–36.6; O2SAT 94–100
[2022-12-13] MEDS: AZITHROMYCIN 500 MG/NS 250 ML 500 MG/250 ML BAG 250 MG IVPB ×2 (00:11→23:23)
[2022-12-13 05:05] LABS: Basophils Percent Auto 1.4 % (0.2-1.2); Eosinophils Absolute Auto 0.1 K/mm3 (0-0.3); Eosinophils Percent Auto 2.3 % (0-4.4); Hematocrit 25.3 % (42.0-52.0); Hemoglobin 8.7 g/dL (14.0-18.0); Immature Granulocyte Absolute 0.02 K/mm3 (0.00-0.031); Immature Granulocyte Percent A 0.9 % (0-0.5); Lymphocytes Percent Auto 42.1 % (18.3-44.2); Mean Corpuscular HGB Conc 34.4 g/dl (32-36); Mean Corpuscular Hemoglobin 33.3 pg (26-34); Mean Corpuscular Volume 96.9 fl (80-100); Mean Platelet Volume 9.5 fl (7.4-10.4); Monocytes Absolute Auto 0.2 K/mm3 (0.1-0.6); Monocytes Percent Auto 9.8 % (2.6-8.5); Neutrophils Absolute Auto 0.9 K/mm3 (1.3-6.7); Neutrophils Percent Auto 43.5 % (45.5-73.1); Platelet Count Result 211 k/mm3 (150-375); Red Blood Count 2.61 M/mm3 (4.6-6.20); Red Cell Distribution Width 16.7 % (11.5-14.5); White Blood Count 2.1 K/mm3 (4.5-10.0)
[2022-12-13 05:13] LABS: Alanine Aminotransferase 263 U/L (6-50); Albumin Level 2.6 g/dL (3.5-5.1); Alkaline Phosphatase 124 U/L (38-126); Anion Gap -3 mmol/L (8-16); Aspartate Amino Transferase 272 U/L (17-59); Bilirubin,Total 0.2 mg/dL (0.2-1.3); Blood Urea Nitrogen 8 mg/dL (9-20); Calcium 7.3 mg/dL (8.4-10.2); Carbon Dioxide 31 mmol/L (22-30); Chloride 103 mmol/L (98-107); Estimated CRCL calculation 60 ml/min; Estimated Glomerular Filt Rate > 60; Glucose 69 mg/dL (65-110); Magnesium 1.6 mg/dL (1.6-2.3); Potassium 3.6 mmol/L (3.4-5.0); Sodium 131 mmol/L (137-145)
[2022-12-13 06:04] LABS: Acanthocytes 1+ (NORMAL); Hypochromasia 1+ (NORMAL); Platelet Estimate Adequate (Adequate); Schistocytes None Seen (NORMAL)
[2022-12-13] MEDS: ENOXAPARIN 40 MG/0.4 ML SYRINGE SUB-Q (08:49)
[2022-12-13 12:17] LABS: Glucose Point of Care 169 mg/dl (65-105)
[2022-12-13 23:29] LABS: Glucose Point of Care 85 mg/dl (65-105)
[2022-12-14 03:21] VITALS: PULSE 55
[2022-12-14] MEDS: LEVOTHYROXINE SODIUM INJ 100 MCG/5 ML VIAL 37.5 MCG IV PUSH (05:42)
[2022-12-14 07:51] VITALS: BP 112/83; PULSE 52; RESP 18; TEMP 36.4; O2SAT 99
[2022-12-14 08:00] VITALS: PULSE 54
--- NOTE | 2022-12-14 09:14 | PCSTNOTE ---
Please refer to the Bedside Swallow Evaluation in the EMR. Please note, silent aspiration cannot be ruled out at bedside.
[2022-12-14] MEDS: ENOXAPARIN 40 MG/0.4 ML SYRINGE SUB-Q (09:19)
[2022-12-14 12:00] VITALS: PULSE 60
[2022-12-14 12:12] LABS: Glucose Point of Care 104 mg/dl (65-105)
--- NOTE | 2022-12-14 13:51 | P.DS_ITS ---
DS: Admitting Diagnosis Discharge Date 12/14/2022 Admitting Diagnosis Generalized weakness DS: Discharge Diagnosis Discharge Diagnosis (1) Pneumonia: Code(s): J18.9 - Pneumonia, unspecified organism Status: Acute (2) Bradycardia: Code(s): R00.1 - Bradycardia, unspecified Status: Acute (3) Pleural effusion: Code(s): J90 - Pleural effusion, not elsewhere classified Status: Acute (4) Hypoglycemia: Code(s): E16.2 - Hypoglycemia, unspecified Status: Acute Plan This is a 62-year-old dontae who presents to the ED with generalized weakness; slow heart rate and hypoglycemia. hx of gastric ancer s/p esophagectomy underlyiing daibrtes, having chills. ems was called was found to have hypoglycemia and 50s. Was given D10. Blood sugar was statin 60s 70s upon arrival to the ER was given D50. A been started on D5 drip. Laboratory evaluation revealed leukopenia 2.5 and anemia of 9.3. He was bradycardic with sinus bradycardia. LFTs were elevated as well. Blood pressure was stable. Chest x-ray was showing possible pneumonia. CT chest was done which showed moderate emphysema with left pleural effusion. No prior records available. He denies any cough. With generalized weakness and chills will screen for underlying infection. IV antibiotics has been empirically started. Left pleural effusion unknown whether his chronic will ask for ultrasound-guided thoracentesis for pleural fluid analysis. Hypoglycemia is unclear etiology. Will check thyroid function due to bradycardia associated. Check other hypoglycemia panel change D5 to D10 due to persistent hypoglycemia. Reports chronic pain in white lumbar area where the drains were placed from her is surgery. Used to be on oxycodone. This is been his major complaint during my visit. I am not able to get into PDMP but reports that his been getting oxycodone in the past. Of suggested him needs to see a pain management doctor as an outpatient basis for ongoing pain control. Will check right upper quadrant ultrasound to see if there is anything new. Other vitals are fairly stable. Check hepatitis panel check HIV 12/11/2022:This is a 62-year-old dontae who presents to the ED with generalized weakness; slow heart rate and hypoglycemia. hx of esophageal cancer s/p esophagectomy underlyiing daibrtes, having chills. ems was called was found to have hypoglycemia and 50s. Was given D10. Blood sugar was statin 60s 70s upon arrival to the ER was given D50. A been started on D5 drip. Laboratory evaluation revealed leukopenia 2.5 and anemia of 9.3. He was bradycardic with sinus bradycardia. LFTs were elevated as well. Blood pressure was stable. Chest x-ray was showing possible pneumonia. CT chest was done which showed moderate emphysema with left pleural effusion. No prior records available. He denies any cough. With generalized weakness and chills will screen for underlying infection. IV antibiotics has been empirically started. Left pleural effusion unknown whether his chronic, status post ultrasound-guided thoracentesis for pleural fluid analysis. 800 cc of pleural fluid drained. Hypoglycemia is unclear etiology. Will check thyroid function due to bradycardia associated. Check other hypoglycemia panel change D5 to D10 due to persistent hypoglycemia. Reports chronic pain in right lumbar area where the drains were placed from his is surgery. Used to be on oxycodone. This is been his major complaint during my visit. I am not able to get into PDMP but reports that his been getting oxycodone in the past. Of suggested him needs to see a pain management doctor as an outpatient basis for ongoing pain control. Right upper quadrant ultrasoun
[2022-12-14 14:51] LABS: C-Peptide 2.91 ng/mL (0.80-3.85)
--- NOTE | 2022-12-14 16:53 | PCCCNOTE ---
Late entry: Phone call received from Sadie bedside RN at [phone] states that they ride for the patient hasn't shown up yet. Called to [facility] ed Matson, santosh Matson they have not secured a ride for the patient yet, no ubers and Lyft does not transport in the area. 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 Cancelled ride with insurance since they haven't secured a ride and can not give an ETA. Cab voucher written for documented home address, voucher provided to bedside RN Sadie. Sadie to confirm address on cab voucher and will call [employer].
[2022-12-15 19:26] LABS: Amylase, Pleural Fluid 69 U/L
[2022-12-17 15:05] LABS: Glucose Pleural Fluid 121 mg/dL; LDH Pleural Fluid 256 U/L; Total Protein Pleural Fluid <3.0 g/dL
[2022-12-17 22:32] LABS: Albumin Pleural Fluid 1.5 g/dL
--- NOTE | 2022-12-30 13:42 | PCCCNOTE ---
Michael voicemail from pt. requesting housing resources. Spoke with pt. this afternoon via telephone. Pt. reports he has been staying with his brother but is wanting his own place, is new to the area, and disabled/receives SSI. Pt. does not have access to email and asks that resources be mailed to him at [address] [place] [address] [address] in [place] [id number]. CC will complete this today 12/30/22.
== END 2022-12-14 16:51 | disposition home or self-care (01) ==
LOC: ANHED 12-10 00:16 → ANHIMU 12-10 02:18
PROVIDERS: Internal Medicine; Admitting Provider Internal Medicine; Emergency Provider Emergency Medicine; PCP Family Medicine; Visit Provider Family Medicine
DX: J18.9 Pneumonia, unspecified organism (principal); R00.1 Bradycardia, unspecified; J90 Pleural effusion, not elsewhere classified; E11.649 Type 2 diabetes mellitus with hypoglycemia without coma; R53.1 Weakness; R18.8 Other ascites; I10 Essential (primary) hypertension; J98.11 Atelectasis; R68.83 Chills (without fever); R63.0 Anorexia; D72.819 Decreased white blood cell count, unspecified; D64.9 Anemia, unspecified; R79.89 Other specified abnormal findings of blood chemistry; Z68.22 Body mass index [BMI] 22.0-22.9, adult; Z98.890 Other specified postprocedural states; Z11.4 Encounter for screening for human immunodeficiency virus [HIV]; R94.31 Abnormal electrocardiogram [ECG] [EKG]; Z85.46 Personal history of malignant neoplasm of prostate; Z85.89 Personal history of malignant neoplasm of other organs and systems; Z85.028 Personal history of other malignant neoplasm of stomach; Z79.899 Other long term (current) drug therapy
CPT/HCPCS: 32555; 36415; 71045; 71250; 76705; 80048; 80053; 80074; 80307; 81003; 82042; 82150; 82533; 82945; 82948; 83525; 83605; 83615; 83735; 83880; 83986; 84157; 84311; 84439; 84443; 84478; 84484; 84681; 85025; 85027; 85610; 85730; 86703; 87040; 87070; 87075; 87205; 89051; 92610; 92611; 93005; 96361; 96365; 96366; 96367; 96372; 96374; 96375; 96376; 99285; A9270; G0378; G0432; J0456; J0696; J1170; J1610; J1650; J1720; J7030; J7070

== ENCOUNTER 2023-02-26 14:00 | Inpatient (IN) | payer OTHER, SELFPAY ==
[2023-02-26] VITALS (9 sets, daily range): BP systolic 102–127; BP diastolic 73–95; PULSE 36–65; RESP 12–21; TEMP 36.1–36.2; O2SAT 98–100; BMI 22.1
--- NOTE | 2023-02-26 | ECG_ITS ---
Measurements Intervals Solo Rate: 36 P: 58 CT: 240 QRS: -16 QRSD: 69 T: -38 QT: 542 QTc: 423 Interpretive Statements MARKED SINUS BRADYCARDIA WITH FIRST DEGREE AV BLOCK BORDERLINE ST-T WAVE ABNORMALITY- INFERIOR LEADS BASELINE ARTIFACT- I, II, III, AVR, AVL, AVF, V1-V2 ABNORMAL ECG COMPARED TO ECG 12/09/2022 21:10:41 NO SIGNIFICANT CHANGES Electronically Signed On 02-27-2023 8:07:04 CDT by Chandrakant Bone D.O.
--- NOTE | ~2023-02-26 | US_ITS ---
EXAMINATION: US right upper quadrant DATE: 02/28/2023 14:37 INDICATION: Elevated liver function tests TECHNIQUE: Multiple grayscale and Doppler ultrasound images of the abdomen were obtained. COMPARISON: 12/11/2022 FINDINGS: Bowel gas obscures visualization of the pancreas. The liver is normal with normal echogenic ity and echotexture. No surface nodularity. Normal hepatopetal flow in the main portal vein. The gall bladder is normal with no abnormal wall thickening, pericholecystic fluid or stones. The normal commo n bile duct measures 5 mm. There was no sonographic Gar sign. IMPRESSION: 1. No sonographic correlate for the patient's symptoms. Reviewed, dictated and finalized at location L.
--- NOTE | ~2023-02-26 | XR_ITS ---
Portable chest x-ray Comparison: 12/11/2022 Clinical History: Bradycardia Findings: Small left pleural effusion is present. Right lung is clear. Cardiomediastinal silhouette is stable. Bones and soft tissues are unremarkable. Impression: Small left pleural effusion. Reviewed, dictated and finalized at location . Impression: Small left pleural effusion.
[2023-02-26 14:29] LABS: Basophils Absolute Auto 0.1 K/mm3 (0.0-0.1); Eosinophils Absolute Auto 0.1 K/mm3 (0-0.3); Eosinophils Percent Auto 5.7 % (0-4.4); Hematocrit 37.8 % (42.0-52.0); Hemoglobin 12.4 g/dL (14.0-18.0); Immature Granulocyte Absolute 0.01 K/mm3 (0.00-0.031); Immature Granulocyte Percent A 0.4 % (0-0.5); Lymphocytes Absolute Auto 1.03 K/mm3 (0.9-3.2); Lymphocytes Percent Auto 41.7 % (18.3-44.2); Mean Corpuscular HGB Conc 32.8 g/dl (32-36); Mean Corpuscular Hemoglobin 33.2 pg (26-34); Mean Corpuscular Volume 101.3 fl (80-100); Monocytes Absolute Auto 0.3 K/mm3 (0.1-0.6); Monocytes Percent Auto 12.1 % (2.6-8.5); Neutrophils Absolute Auto 0.9 K/mm3 (1.3-6.7); Neutrophils Percent Auto 38.1 % (45.5-73.1); Platelet Count Result 244 k/mm3 (150-375); Red Blood Count 3.73 M/mm3 (4.6-6.20); Red Cell Distribution Width 14.9 % (11.5-14.5); White Blood Count 2.5 K/mm3 (4.5-10.0)
[2023-02-26 14:39] LABS: Alanine Aminotransferase 58 U/L (6-50); Albumin Level 3.9 g/dL (3.5-5.1); Alkaline Phosphatase 75 U/L (38-126); Anion Gap 7 mmol/L (8-16); Aspartate Amino Transferase 101 U/L (17-59); Bilirubin,Total 0.3 mg/dL (0.2-1.3); Blood Urea Nitrogen 11 mg/dL (9-20); Calcium 8.6 mg/dL (8.4-10.2); Carbon Dioxide 27 mmol/L (22-30); Chloride 103 mmol/L (98-107); Estimated CRCL calculation 54 ml/min; Estimated Glomerular Filt Rate > 60; Glucose 135 mg/dL (65-110); Phosphorus 3.8 mg/dL (2.5-4.5); Potassium 3.4 mmol/L (3.4-5.0); Sodium 137 mmol/L (137-145)
[2023-02-26 14:49] LABS: Platelet Estimate Adequate (Adequate)
[2023-02-26 14:51] LABS: Burr Cells 1+ (NORMAL); Schistocytes None Seen (NORMAL)
[2023-02-26 15:52] LABS: Thyroid Stimulating Hormone Reflex > 100.000 uIU/mL (0.465-4.68)
--- NOTE | 2023-02-26 16:01 | ED.GENADULT ---
HPI - General Adult General Chief complaint: Recheck/Abnormal Lab/Rx Stated complaint: hypoglycemia History of Present Illness HPI narrative: Patient is a 62-year-old male who presents to the ER with feeling weak and cold. Patient reports that he was feeling so cold that he needed to call an ambulance. 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 EMS found that his blood sugar was 12 and he received D10. Patient's blood sugar has improved but she still feels quite cold. He is found to be bradycardic but has no chest pain or chest pressure. He is having no dizziness. No other complaints. Related Data Home Medications Medication Instructions Recorded Confirmed lisinopril 10 mg tablet 10 mg PO DAILY 12/10/22 12/10/22 Allergies Allergy/AdvReac Type Severity Reaction Status Date / Time No Known Allergies Allergy Verified 12/09/22 21:17 Review of Systems Review of Systems: All systems reviewed & are unremarkable except as noted in HPI and below Constitutional: Constitutional: Reports chills, Reports fatigue and Denies fever(s) ENT: Denies nasal congestion and Denies sore throat Cardiovascular: Cardiovascular: Denies chest pain, Denies rapid heart rate, Denies radiating jaw, neck or arm pain and Reports slow heart rate Respiratory: Respiratory: Denies cough, Denies dyspnea and Denies wheezing Gastrointestinal: Gastrointestinal: Denies abdominal pain, Denies nausea and Denies vomiting Musculoskeletal: Musculoskeletal: Denies arthralgias, Denies joint swelling and Denies muscle cramps Integumentary/Breasts: Skin/Breast: Denies erythema and Denies rash Neurologic: Denies syncope, Denies headache(s), Denies focal weakness and Denies numbness [facility], [facility] Past Medical History Medical History (Updated 02/26/23 @ 16:43 by Shahid Esquivel MD) Congestive heart failure Hypertension Hypothyroidism Stomach cancer Family History Family History (Updated 12/10/22 @ 02:29 by Jose C Morales RN) Father Acute myocardial infarction Congestive heart failure Mother Bone cancer Social History Social History Smoking packs per day: 1 Smoking cigarettes per day: 20.0 Years smoked: 50 Smoking pack-years: 50.00 Smoking status: Former smoker Alcohol intake: current Drinks per week: 1 Substance use type: marijuana Last use: 12/09/22 Lack of Transportation: No Lack of Food: Never True Current Housing: I Have Housing Concerned About Future Housing: No Difficulty Paying Gas/Electric Bills: No Difficulty Paying for Meds: No Currently Unemployed: No Education: Decline to Answer Difficulty w/ Childcare or Family Care: No Spiritual care concerns: No Exam Narrative: GENERAL: Well-appearing, well-nourished, and in no acute distress. HEAD: Normocephalic, atraumatic. EYES: PERRL and EOMI. ENT: Mucous membranes moist. CHEST: Clear to auscultation. No respiratory distress. HEART: R bradycardic and regular. Normal peripheral pulses. ABDOMEN: Soft, nontender, nondistended. EXTREMITIES: Normal range of motion. No edema. SKIN: Warm, dry, no rash. NEURO: Alert and oriented x3. PSYCH: Normal mood and affect. Course Course Emergency Course: Patient resting comfortably. Informed of results. Patient with previous history of bradycardia and hypothyroidism. He is not compliant with medications at home. He will be admitted to the hospitalist service. They will determine whether he receives IV thyroxine. No evidence of heart block. Vital Signs Vital signs: Vital Signs Temperature 97.2 F L 02/26/23 13:51 Pulse Rate 40 L 02/26/23 13:51 Respiratory Rate 16 02/26/23 13:51 Blood Pressure 108/73 02/26/23 13:51 Pulse Oximetry 98 02/26/23 13:51 Temperature 97.2 F L 02/26/23 13:51 Pulse Rate 42 L 02/26/23 17:16 Respiratory Rate
[2023-02-26 16:18] LABS: Free T4 Free Thyroxine Reflex 0.07 ng/dL (0.78-2.19)
[2023-02-26 16:28] LABS: Troponin I < 0.012 ng/mL (0.000-0.034)
[2023-02-26 16:57] LABS: Glucose Point of Care 102 mg/dl (65-105)
--- NOTE | 2023-02-26 17:28 | PM.IMHP ---
H&P: HPI History of Present Illness Date/Time: 02/26/23 16:00 Chief Complaint: Weakness. Narrative: This is a pleasant 62-year-old male with history of esophageal cancer status post surgical resection and chemoradiation, remote myocardial infarction without PCI, hypertension, hyperlipidemia, diet-controlled type 2 diabetes mellitus, and hypothyroidism who presented to the emergency department via EMS from home for evaluation of weakness. The patient provides the following history. He woke up this morning feeling weak and cold. Not long prior to arrival he developed chills, sweats, and profound weakness similar to prior episodes of hypoglycemia and he called 911. On EMS arrival his glucose was reportedly 12 for which he received D10. He is no longer on medication for his diabetes and he reports having pretty frequent episodes of hypoglycemia for which he will usually eat some chocolate with improvement in his symptoms. On arrival to the emergency department he was afebrile with stable blood pressures. Pulse has been persistently in the 40s though he is asymptomatic with that. Labs were significant for a WBC count of 2.5, hemoglobin 12.4, MCV 101.3, platelet 244, normal electrolytes, AST 101, ALT 58, troponin less than 0.012, TSH greater than 100, and free T4 0.07. He was prescribed 100 mcg levothyroxine and November 2022 however it does not sound as though he had that filled. He is being admitted in this setting for close monitoring and initiation of levothyroxine. He denies confusion, eye swelling, hair loss, weight gain, constipation, chest pain, and shortness a breath. Review of Systems Review of Systems: Twelve systems were reviewed. No fever. Denies headache, neck ache, sinus congestion, and sore throat. No chest pain or shortness of breath. No cough. Appetite has been okay. No nausea, vomiting, diarrhea, or dysuria. He denies sick contacts. Except as documented, all other systems were reviewed and are negative. [facility] Past Medical History Medical History (Updated 02/26/23 @ 23:08 by Princess Guerrero PA-C) Congestive heart failure Deep venous thrombosis Diet-controlled type 2 diabetes mellitus Esophageal cancer Status post surgical resection including partial gastrectomy and esophagectomy as well as chemo radiation Hypertension Hypothyroidism Myocardial infarction Surgical History Surgical History (Updated 02/26/23 @ 22:54 by Princess G Gerling, PA-C) History of esophagectomy Family History Family History Father Acute myocardial infarction Congestive heart failure Mother Bone cancer Social History Social History (Updated 02/26/23 @ 22:55 by Princess Guerrero PA-C) Social History: Surrogate medical decision maker: Ana Laura Jaime, sibling. Code status: Full code. Smoking packs per day: 1 Smoking cigarettes per day: 20.0 Years smoked: 50 Smoking pack-years: 50.00 Smoking status: Former smoker Alcohol intake: current Drinks per week: 1 Substance use type: marijuana Last use: 02/26/23 Lack of Transportation: No Lack of Food: Never True Current Housing: I Have Housing Concerned About Future Housing: No Difficulty Paying Gas/Electric Bills: No Difficulty Paying for Meds: No Currently Unemployed: No Education: Decline to Answer Difficulty w/ Childcare or Family Care: No Additional living arrangements comments: Lives in [place] with brother. Additional occupation/education comments: Retired. Spiritual care concerns: No Meds Home Medications and Allergies Home Medications Medication Instructions Recorded Confirmed Type lisinopril 10 mg tablet 10 mg PO DAILY 12/10/22 02/26/23 History gabapentin 100 mg capsule 100 mg PO TID 02/26/23 02/26/23 History tamsulosin 0.4 mg capsule 0.4 mg PO DAILY 02/26/23 02/26/23 History Allergies Allergy/AdvReac Type Severity Reaction Status Date / Time No Known Richard
[2023-02-26 17:48] LABS: Appearance Urine Cloudy (Clear); Bacteria Urine None Seen /hpf; Bilirubin Urine Negative (Negative); Blood Urine Negative (Negative); Color Urine Yellow (Yellow); Glucose Urine UA Trace mg/dL (Negative); Ketones Urine Negative (Negative); Leukocyte Esterase Ur Negative LEU/UL (Negative); Need Manual Microscopic Reviewed; Nitrate Urine Negative (Negative); Non Pathogenic Casts 0-2; Protein Urine Negative (Negative); Specific Grav Ur 1.017 (1.001-1.035); Squamous Epithelial Cell Urine None seen /hpf (Few); Urobilinogen Urine 0.2 mg/dL (<2.0); WBC Urine 0-5 /hpf
[2023-02-26 17:49] LABS: Add Urine Microscopic? YES
--- NOTE | 2023-02-26 18:16 | ADMGEN ---
This patient, Garrick Jaime, was admitted to IMU Room 205-01. Patient/family oriented to hospital policies and general routines including ID bracelet, bed and alarms, visiting hours, pain management, procedures, bathroom and other care routines, personal items, smoking policy, room service/diet, and visiting hours. Information on how to activate the Rapid Response Team has been discussed. Patient/Family are encouraged to report perceived risks to care and to ask questions if they do not understand what they are told or what they should do.
[2023-02-26 18:19] LABS: Glucose Point of Care 168 mg/dl (65-105)
[2023-02-26 19:37] LABS: Cortisol Random 8.69 ug/dL
[2023-02-26 20:38] LABS: Glucose Point of Care 176 mg/dl (65-105)
[2023-02-26] MEDS: LEVOTHYROXINE SODIUM INJ 100 MCG/5 ML VIAL IV PUSH (22:42)
[2023-02-26] MEDS: HYDROCORTISONE SODIUM SUCCINATE 100 MG/2 ML VIAL IV PUSH (22:42)
[2023-02-26 22:49] LABS: Immature Reticulocyte Fraction 5.9 % (3.0-15.9); Reticulocyte Hemoglobin Conten 36.3 pg (28.2-35.7); Reticulocyte Percent 0.66 % (0.7-4.3); Reticulocytes Absolute 0.03 M/mm3 (0.02-0.1)
[2023-02-26 23:53] LABS: Iron 71 ug/dL (49-181)
[2023-02-27] VITALS (15 sets, daily range): BP systolic 105–121; BP diastolic 78–90; PULSE 51–84; RESP 16–18; TEMP 35.9–36.9; O2SAT 96–100
[2023-02-27 00:03] LABS: Glucose Point of Care 55 mg/dl (65-105)
[2023-02-27 00:03] LABS: Percent Iron Saturation 24 % (20-50)
[2023-02-27 00:25] LABS: Glucose Point of Care 133 mg/dl (65-105)
[2023-02-27 00:44] LABS: Folic Acid 7.3 ng/mL (2.76->20); Lactate Dehydrogenase 240 U/L (120-246); Transferrin 204 mg/dL (206-381)
[2023-02-27 01:07] LABS: Glucose Point of Care 250 mg/dl (65-105)
[2023-02-27 02:01] LABS: Free T4 Free Thyroxine Reflex 0.08 ng/dL (0.78-2.19)
[2023-02-27 02:26] LABS: Hemoglobin A1C 5.3 % (<5.7)
[2023-02-27 05:29] LABS: Glucose Point of Care 114 mg/dl (65-105)
[2023-02-27 07:46] LABS: Hemoglobin 13.9 g/dL (14.0-18.0); Mean Corpuscular HGB Conc 33.1 g/dl (32-36); Mean Corpuscular Volume 99.8 fl (80-100); Mean Platelet Volume 9.1 fl (7.4-10.4); Platelet Count Result 286 k/mm3 (150-375); Red Blood Count 4.21 M/mm3 (4.6-6.20); Red Cell Distribution Width 14.7 % (11.5-14.5); White Blood Count 2.7 K/mm3 (4.5-10.0)
[2023-02-27 08:01] LABS: Alanine Aminotransferase 60 U/L (6-50); Albumin Level 3.7 g/dL (3.5-5.1); Alkaline Phosphatase 77 U/L (38-126); Anion Gap 7 mmol/L (8-16); Aspartate Amino Transferase 81 U/L (17-59); Bilirubin,Total 0.3 mg/dL (0.2-1.3); Blood Urea Nitrogen 11 mg/dL (9-20); Calcium 8.7 mg/dL (8.4-10.2); Carbon Dioxide 27 mmol/L (22-30); Chloride 100 mmol/L (98-107); Estimated CRCL calculation 65 ml/min; Estimated Glomerular Filt Rate > 60; Glucose 124 mg/dL (65-110); Potassium 4.8 mmol/L (3.4-5.0); Sodium 134 mmol/L (137-145)
--- NOTE | 2023-02-27 10:32 | PM.IMPN ---
Progress Note: A&P Assessment and Plan (1) Hypothyroidism: Code(s): E03.9 - Hypothyroidism, unspecified Status: Acute Assessment and Plan: The patient has profound hypothyroidism with a TSH greater than 100 and a free T4 of 0.07. He is at risk for myxedema coma and he was started on IV levothyroxine 100 mcg in addition to 100 mg of hydrocortisone. TSH was 66 with FT4<0.07 in November and was discharged on levothyroxine 100mcg daily. (2) Bradycardia: Code(s): R00.1 - Bradycardia, unspecified Status: Acute Assessment and Plan: Most likely related to the above. He is asymptomatic with this and blood pressures are stable. He was bradycardic last admission also felt related to hypothyroidism. Should improve with T4 replacement. Continue to monitor closely in IMU. (3) Hypoglycemia: Code(s): E16.2 - Hypoglycemia, unspecified Status: Acute Assessment and Plan: May very well be related to profound hypothyroidism. He was hypoglycemic at last admission in November. He is no longer on medication for his diabetes. Continue frequent Accu-Cheks. Continue hypoglycemic protocol. (4) Macrocytic anemia: Code(s): D53.9 - Nutritional anemia, unspecified Status: Acute Assessment and Plan: Status post what sounds like partial gastrectomy and esophagectomy for esophageal cancer. He has not been on any supplements since that time. Iron/B12/folate levels okay. Hgb stable 12-13. Persistent leukopenia noted since November. Probably needs bone marrow biopsy. (5) Diet-controlled type 2 diabetes mellitus: Code(s): E11.9 - Type 2 diabetes mellitus without complications Status: Acute Assessment and Plan: A1c 5.3. Plan is as detailed above. (6) Hypertension: Code(s): I10 - Essential (primary) hypertension Status: Acute Assessment and Plan: Patient's blood pressure was reviewed on 02/27 Blood pressure remains well controlled. Will continue to follow. Hold lisinopril since will need BP to compensate for bradycardia (7) Elevated LFTs: Code(s): R79.89 - Other specified abnormal findings of blood chemistry Status: Acute Assessment and Plan: AST and ALT are lower than what they were in November. Abdominal ultrasound at that time showed mild ascites only. Abdominal exam is benign today. Levels continue to trend down. Hepatitis and HIV negative in November. Continue to monitor. (8) Esophageal cancer: Code(s): C15.9 - Malignant neoplasm of esophagus, unspecified Status: Acute Assessment and Plan: Esophageal CA status post surgical resection including partial gastrectomy and esophagectomy as well as chemo and radiation. He was told last year that chemo was recommended but he refused. He has had imaging in [place] since his surgery but has not followed up with his physicians. He overall does not want further treatment for his cancer. CXR showing small left pleural effusion. Patietn plans to return to [place] soon. Will hold off on further imaging. Encouraged patient to talk with his doctors when he returns to [place] and to discuss comfort care if he refuses treatment. Plan Elevated cortisol - does not fit with low glucose and normal BP. Check 24hr free cortisol. Subjective Date/time seen: 02/27/23 10:32 Interval history: 62yo male with esophageal cancer, DM, HTN and CAD here for hypoglycemia, weakness and feeling cold and found to have bradycardia. Patient feeling well today. He has been up to the bathroom. No complaints of chest pain, shortness of breath, dyspnea on exertion or lightheadedness. No nausea or vomiting. No headaches. Exam Narrative: AF 98.4 110/81 51 17 96% Gen - NARD HEENT - nc/at. no thyroidmegaly Chest - CTA bilaterally, nml RR CV -bradycardic and regular. Telemetry showing bradycardia with heart rate around 50 Abd - Soft, NT/ND, Positive BS Ext - No pedal edema Psych - Nml mood
[2023-02-27] MEDS: LEVOTHYROXINE SODIUM INJ 100 MCG/5 ML VIAL IV PUSH (11:17)
[2023-02-27] MEDS: TAMSULOSIN HCL 0.4 MG CAPSULE PO (11:18)
[2023-02-27] MEDS: GABAPENTIN 100 MG CAPSULE PO ×2 (11:18→17:54)
[2023-02-27 11:53] LABS: Glucose Point of Care 145 mg/dl (65-105)
[2023-02-27 11:53] LABS: Glucose Point of Care 120 mg/dl (65-105)
[2023-02-27 16:01] LABS: Glucose Point of Care 101 mg/dl (65-105)
[2023-02-27 23:29] LABS: Glucose Point of Care 112 mg/dl (65-105)
[2023-02-28] VITALS (11 sets, daily range): BP systolic 112–121; BP diastolic 85–90; PULSE 47–75; RESP 16–20; TEMP 36.3–36.5; O2SAT 99–100
[2023-02-28 05:36] LABS: Alanine Aminotransferase 105 U/L (6-50); Albumin Level 3.1 g/dL (3.5-5.1); Alkaline Phosphatase 66 U/L (38-126); Anion Gap 7 mmol/L (8-16); Aspartate Amino Transferase 156 U/L (17-59); Bilirubin,Total 0.2 mg/dL (0.2-1.3); Blood Urea Nitrogen 13 mg/dL (9-20); Calcium 8.2 mg/dL (8.4-10.2); Carbon Dioxide 26 mmol/L (22-30); Chloride 102 mmol/L (98-107); Estimated CRCL calculation 62 ml/min; Estimated Glomerular Filt Rate > 60; Glucose 83 mg/dL (65-110); Sodium 135 mmol/L (137-145)
[2023-02-28] MEDS: LEVOTHYROXINE SODIUM 100 MCG TABLET PO (05:38)
[2023-02-28 07:42] LABS: Creatine Kinase 339 U/L (55-170)
[2023-02-28 09:47] LABS: Free T4 Free Thyroxine Reflex 0.24 ng/dL (0.78-2.19)
[2023-02-28] MEDS: GABAPENTIN 100 MG CAPSULE PO ×3 (10:08→17:09)
[2023-02-28] MEDS: TAMSULOSIN HCL 0.4 MG CAPSULE PO (10:08)
[2023-02-28] MEDS: LEVOTHYROXINE SODIUM INJ 100 MCG/5 ML VIAL 50 MCG IV PUSH (11:05)
[2023-02-28 11:30] LABS: Glucose Point of Care 76 mg/dl (65-105)
--- NOTE | 2023-02-28 15:23 | PM.DS ---
DS: Admitting Diagnosis Discharge Date 02/28/23 Admitting Diagnosis Weakness DS: Discharge Diagnosis Discharge Diagnosis (1) Hypothyroidism: Code(s): E03.9 - Hypothyroidism, unspecified Status: Acute (2) Bradycardia: Code(s): R00.1 - Bradycardia, unspecified Status: Acute (3) Hypoglycemia: Code(s): E16.2 - Hypoglycemia, unspecified Status: Acute (4) Macrocytic anemia: Code(s): D53.9 - Nutritional anemia, unspecified Status: Acute (5) Diet-controlled type 2 diabetes mellitus: Code(s): E11.9 - Type 2 diabetes mellitus without complications Status: Acute (6) Hypertension: Code(s): I10 - Essential (primary) hypertension Status: Acute (7) Elevated LFTs: Code(s): R79.89 - Other specified abnormal findings of blood chemistry Status: Acute (8) Esophageal cancer: Code(s): C15.9 - Malignant neoplasm of esophagus, unspecified Status: Acute DS: Summary Hospital Course Reason for hospitalization: 62yo male with esophageal cancer, DM, HTN and CAD here for hypoglycemia, weakness and feeling cold and found to have bradycardia. Please see H&P for details. Hospital Course: Patient presents with weakness and feeling cold and found to have bradycardia. The patient has profound hypothyroidism with a TSH greater than 100 and a free T4 of 0.07. He is at risk for myxedema coma and he was started on IV levothyroxine 100 mcg in addition to 100 mg of hydrocortisone x1. TSH was 66 with FT4<0.07 in November and was discharged on levothyroxine 100mcg daily but ran out of medication so stopped. Repeat FT4 was 0.24 after 3 doses of IV levothyroxine. Compliance with taking prescribed medications discussed. EKG on admission showing HR 36. Bradycardia most likely related to the above. He was symptomatic with weakness. He was bradycardic last admission also felt related to hypothyroidism. Heart rate improved to the 50's and remained stable. He was monitored on telemetry. He was also hypoglycemic felt related to profound hypothyroidism. He was hypoglycemic at last admission in November. He is no longer on medication for his diabetes. He had a mild macrocytic anemia. He is status post what sounds like partial gastrectomy and esophagectomy for esophageal cancer. He has not been on any supplements since that time. Iron/B12/folate levels okay. Hgb stable 12-13. Also with persistent leukopenia noted since November. He has elevated LFTs on admisison. AST and ALT are lower than what they were in November. Abdominal ultrasound at that time showed mild ascites only. Abdominal exam is benign today. Hepatitis and HIV negative in November. Abd US here also showing no acute findings. Patient has a hx of esophageal CA status post surgical resection including partial gastrectomy and esophagectomy as well as chemo and radiation. He was told last year that chemo was recommended but he refused. He has had imaging in [place] since his surgery but has not followed up with his physicians. He overall does not want further treatment for his cancer. CXR showing small left pleural effusion. Patient plans to return to [place] soon. Strongly encouraged patient to talk with his doctors when he returns to [place] and to discuss further treatment options or comfort care if he refuses treatment. Patient overall did well and was able to be discharged on 02/28/23. Status at Discharge Cognitive/behavioral status at discharge: stable Time Spent with Patient Time attestation: Total time spent providing and/or coordinating discharge services: 32 minutes Time spent: Greater than 30 minutes Exam Narrative: AF 97.7 112/85 47 16 100% ra Gen - NARD Chest - CTA bilaterally, nml RR CV -bradycardic and regular. Telemetry showing bradycardia with heart rate around 50 Abd - Soft, NT/ND, Positive BS Ext - No pedal edema Psych - Nml mood and affect Skin - Warm and dry DS: Data Data Completed and Pending Labs o
[2023-03-01 15:38] LABS: Glucose Point of Care 112 mg/dl (65-105)
[2023-03-04 15:52] LABS: Adrenocorticotropic Hormone 50 pg/mL (6-50)
== END 2023-02-28 17:33 | disposition home or self-care (01) | DRG 427 ==
LOC: ANHED 16:43 → ANHIMU 17:40
PROVIDERS: Physician Assistant; Admitting Provider Hospitalist; Emergency Provider Emergency Medicine; PCP Family Medicine; Visit Provider Internal Medicine
DX: E03.9 Hypothyroidism, unspecified (principal); C15.9 Malignant neoplasm of esophagus, unspecified; E11.649 Type 2 diabetes mellitus with hypoglycemia without coma; D53.9 Nutritional anemia, unspecified; I10 Essential (primary) hypertension; I25.10 Atherosclerotic heart disease of native coronary artery without angina pectoris; R00.1 Bradycardia, unspecified; R79.89 Other specified abnormal findings of blood chemistry; Z85.01 Personal history of malignant neoplasm of esophagus
CPT/HCPCS: 36415; 71045; 76705; 80053; 81001; 82024; 82530; 82533; 82550; 82607; 82728; 82746; 82948; 83036; 83540; 83550; 83615; 83735; 84100; 84425; 84439; 84443; 84466; 84480; 84484; 85025; 85027; 85046; 93005; 96374; 96375; 99285; A9270; G0378; G0379; J1720

== ENCOUNTER 2023-04-09 23:55 | Emergency (ER) | payer OTHER, SELFPAY ==
--- NOTE | ~2023-04-09 | XR_ITS ---
Clinical Indication: Hypoglycemia PA and lateral views of the chest: Comparison: 02/26/2023 Findings: Small left pleural effusion is present with ovoid retrocardiac airspace consolidation. Righ t lung clear. Cardiomediastinal silhouette is within normal limits. Bones and soft tissues are unrem arkable. Impression: Small left pleural effusion with ovoid retrocardiac airspace consolidation. This is somewhat nonspeci fic. Diagnostic considerations radiographically could include atelectasis, pneumonia, or even neoplas m. Consider chest CT to further evaluate morphology of the airspace disease. Reviewed, dictated and finalized at location M. Impression: Small left pleural effusion with ovoid retrocardiac airspace consolidation. Thi s is somewhat nonspecific. Diagnostic considerations radiographically could inc lude atelectasis, pneumonia, or even neoplasm. Consider chest CT to further jada luate morphology of the airspace disease.
[2023-04-09 23:57] VITALS: BP 118/83; PULSE 45; RESP 12; O2SAT 96
--- NOTE | 2023-04-10 | PC.NURSE ---
Unable to obtain accurate temperature on pt, oral or axillary. EDP Peng notified. Pt given warm blankets and sandwich with peanut butter crackers.
--- NOTE | 2023-04-10 00:05 | ED.GENADULT ---
HPI - General Adult General Chief complaint: Recheck/Abnormal Lab/Rx Stated complaint: low blood glucose Time Seen by Provider: 04/09/23 23:59 History of Present Illness HPI narrative: Patient brought to the emergency department by EMS. He denies history of diabetes and does not take insulin. However his family found him disoriented and drowsy. EMS started IV D50. Patient received a total of 500 cc. He is now alert and oriented. Patient says he did not eat much today. When asked why he says he did not feel like it. Denies all other complaints. Related Data Home Medications Medication Instructions Recorded Confirmed lisinopril 10 mg tablet 10 mg PO DAILY 12/10/22 02/26/23 gabapentin 100 mg capsule 100 mg PO TID 02/26/23 02/26/23 tamsulosin 0.4 mg capsule 0.4 mg PO DAILY 02/26/23 02/26/23 Allergies Allergy/AdvReac Type Severity Reaction Status Date / Time No Known Allergies Allergy Verified 02/26/23 18:10 Review of Systems Review of Systems: Negative except what is documented in the [facility] Past Medical History Medical History (Updated 04/10/23 @ 03:55 by Ariana Khoury MD) Congestive heart failure Deep venous thrombosis Diet-controlled type 2 diabetes mellitus Esophageal cancer Status post surgical resection including partial gastrectomy and esophagectomy as well as chemo radiation Hypertension Hypothyroidism Myocardial infarction Surgical History Surgical History (Updated 02/26/23 @ 22:54 by Princess Guerrero PA-C) History of esophagectomy Family History Family History Father Acute myocardial infarction Congestive heart failure Mother Bone cancer Social History Social History (Updated 02/26/23 @ 22:55 by Princess Guerrero PA-C) Social History: Surrogate medical decision maker: Ana Laura Jaime, sibling. Code status: Full code. Smoking packs per day: 1 Smoking cigarettes per day: 20.0 Years smoked: 50 Smoking pack-years: 50.00 Smoking status: Former smoker Alcohol intake: current Drinks per week: 1 Substance use type: marijuana Last use: 02/26/23 Lack of Transportation: No Lack of Food: Never True Current Housing: I Have Housing Concerned About Future Housing: No Difficulty Paying Gas/Electric Bills: No Difficulty Paying for Meds: No Currently Unemployed: No Education: Decline to Answer Difficulty w/ Childcare or Family Care: No Additional living arrangements comments: Lives in [place] with brother. Additional occupation/education comments: Retired. Spiritual care concerns: No Exam Narrative: GENERAL: Well-appearing, well-nourished, and in no acute distress. HEAD: Normocephalic, atraumatic. EYES: PERRLA and EOMI. ENT: Nares clear, no rhinorrhea or epistaxis. Mucous membranes moist. NECK: Supple. CHEST: Clear to auscultation. No respiratory distress. HEART: Regular rate and rhythm. ABDOMEN: Soft, nontender, nondistended. EXTREMITIES: Normal range of motion. No edema. SKIN: Warm, dry, no rash. NEURO: No focal deficits. Alert and oriented x3. PSYCH: Normal mood and affect. Course Course Emergency Course: Differential diagnosis includes but not limited to decreased p.o. intake, infection, chronic hypoglycemia Vital Signs Vital signs: Vital Signs Pulse Rate 45 L 04/09/23 23:57 Respiratory Rate 12 04/09/23 23:57 Blood Pressure 118/83 04/09/23 23:57 Pulse Oximetry 96 04/09/23 23:57 Oxygen Delivery Room Air 04/09/23 23:57 Temperature 36.4 C L 04/10/23 02:01 Pulse Rate 53 L 04/10/23 04:59 Respiratory Rate 16 04/10/23 04:59 Blood Pressure 120/86 04/10/23 04:59 Pulse Oximetry 97 04/10/23 04:59 Oxygen Delivery Room Air 04/09/23 23:57 Medical Decision Making MDM Narrative Medical decision making narrative: Patient's blood sugar dropped again. He continues to ask to go home. Given more food Due to hig
[2023-04-10 00:10] LABS: Glucose Point of Care 142 mg/dl (65-105)
[2023-04-10 01:01] VITALS: BP 103/73; PULSE 54; RESP 16; O2SAT 100
[2023-04-10 01:08] LABS: Basophils Absolute Auto 0.1 K/mm3 (0.0-0.1); Eosinophils Absolute Auto 0.1 K/mm3 (0-0.3); Eosinophils Percent Auto 2.7 % (0-4.4); Hematocrit 41.2 % (42.0-52.0); Hemoglobin 13.7 g/dL (14.0-18.0); Immature Granulocyte Absolute 0.03 K/mm3 (0.00-0.031); Immature Granulocyte Percent A 0.7 % (0-0.5); Lymphocytes Percent Auto 24.8 % (18.3-44.2); Mean Corpuscular HGB Conc 33.3 g/dl (32-36); Mean Corpuscular Hemoglobin 32.9 pg (26-34); Mean Platelet Volume 9.2 fl (7.4-10.4); Monocytes Absolute Auto 0.6 K/mm3 (0.1-0.6); Monocytes Percent Auto 14.4 % (2.6-8.5); Neutrophils Absolute Auto 2.2 K/mm3 (1.3-6.7); Neutrophils Percent Auto 55.4 % (45.5-73.1); Platelet Count Result 301 k/mm3 (150-375); Red Blood Count 4.16 M/mm3 (4.6-6.20); Red Cell Distribution Width 14.6 % (11.5-14.5)
[2023-04-10 01:16] LABS: Alanine Aminotransferase 20 U/L (6-50); Albumin Level 4.2 g/dL (3.5-5.1); Alkaline Phosphatase 88 U/L (38-126); Anion Gap 8 mmol/L (8-16); Aspartate Amino Transferase 26 U/L (17-59); Bilirubin,Total 0.4 mg/dL (0.2-1.3); Blood Urea Nitrogen 10 mg/dL (9-20); Calcium 8.7 mg/dL (8.4-10.2); Carbon Dioxide 26 mmol/L (22-30); Chloride 103 mmol/L (98-107); Estimated CRCL calculation 70 ml/min; Estimated Glomerular Filt Rate > 60; Glucose 145 mg/dL (65-110); Potassium 3.8 mmol/L (3.4-5.0); Sodium 137 mmol/L (137-145)
[2023-04-10 01:58] VITALS: BP 101/79; PULSE 57; RESP 11; O2SAT 98
[2023-04-10 02:01] VITALS: TEMP 36.4
[2023-04-10 02:08] LABS: Glucose Point of Care 59 mg/dl (65-105)
[2023-04-10 02:16] LABS: Glucose Point of Care 51 mg/dl (65-105)
--- NOTE | 2023-04-10 02:19 | PC.NURSE ---
Addendum entered by Aleksandra Ortiz RN 04/10/23 02:23: Pt given jello, juice, and sandwich. Original Note: PANCHITO Khoury notified of pts low BG. Pt A&Ox4, awake, but reports feeling tired.
[2023-04-10 02:22] LABS: Appearance Urine Clear (Clear); Bilirubin Urine Negative (Negative); Blood Urine Negative (Negative); Color Urine Yellow (Yellow); Glucose Urine UA 3+ mg/dL (Negative); Ketones Urine Trace mg/dL (Negative); Leukocyte Esterase Ur Negative LEU/UL (Negative); Nitrate Urine Negative (Negative); Protein Urine Negative (Negative); Urobilinogen Urine 0.2 mg/dL (<2.0); pH Urine 5.5 (5.0-9.0)
[2023-04-10 02:41] VITALS: BP 133/86; PULSE 60; RESP 15; O2SAT 98
[2023-04-10 02:42] LABS: Specific Grav Ur 1.036 (1.001-1.035)
[2023-04-10 02:44] LABS: Add Urine Microscopic? NO
[2023-04-10 02:51] LABS: Amphetamine Screen Urine Negative (Negative); Barbiturate Screen Urine Negative (Negative); Benzodiazepines Screen Urine Negative (Negative); Cannabinoid Screen Urine Positive (Negative); Cocaine Screen Urine Positive (Negative); Methadone Screen Urine Negative (Negative); Opiate Screen Urine Negative (Negative); Phencyclidine Screen Urine Negative (Negative)
[2023-04-10 03:04] LABS: Glucose Point of Care 116 mg/dl (65-105)
[2023-04-10 03:57] LABS: Glucose Point of Care 76 mg/dl (65-105)
[2023-04-10 04:59] VITALS: BP 120/86; PULSE 53; RESP 16; O2SAT 97
[2023-04-10 05:00] LABS: Glucose Point of Care 98 mg/dl (65-105)
[2023-04-10 05:30] VITALS: BP 111/88; PULSE 55; RESP 18; O2SAT 98
== END 2023-04-10 05:31 | disposition home or self-care (01) ==
PROVIDERS: Emergency Provider Emergency Medicine; PCP Family Medicine
DX: E16.2 Hypoglycemia, unspecified (principal); E03.9 Hypothyroidism, unspecified; I25.2 Old myocardial infarction; I11.0 Hypertensive heart disease with heart failure; I50.9 Heart failure, unspecified
CPT/HCPCS: 36415; 71046; 80053; 80307; 81003; 82948; 85025; 99283

== ENCOUNTER 2024-04-23 18:27 | Inpatient (IN) | payer OTHER, SELFPAY ==
--- NOTE | ~2024-04-23 | CT_ITS ---
EXAMINATION: CTA chest PE abdomen pel DATE: 04/23/2024 22:50 INDICATION: Chest pain, flank pain evaluate for PE TECHNIQUE: Computed tomography angiography (CTA) of the chest was performed with 100 mL Omnipaque-350 intravenous contrast timed to evaluate the pulmonary arteries, followed by portal venous phase imagi ng of the abdomen and pelvis. Coronal maximum intensity projection 3D-reconstructions were created by the technologist. The dose-length product (DLP) was 468.73 mGy-cm. Automated exposure control and it erative reconstruction technique were employed. COMPARISON: CT chest 12/10/2022. FINDINGS: CHEST: Lung parenchyma and airways: Segmental right middle lobe consolidation with surrounding groundglass o pacities. Subsegmental consolidation in the lingula. Left medial basal opacity with morphology sugges tive of rounded atelectasis. Patent airways Pleura: Small volume left pleural fluid collection. Thoracic inlet, axillae and chest wall: No thyroid or soft tissue mass. Thoracic aorta: Ascending aortic ectasia up to 4.1 cm. No dissection. Mediastinum: Likely prior gastric pull-through procedure. Heart and pericardium: Normal. Coronary artery calcifications: Mild. Thoracic bones: No acute osseous finding. Pulmonary arteries: Study quality: Adequate. No pulmonary emboli detected. ABDOMEN/PELVIS: Liver: Normal. Biliary/Gallbladder: Gallbladder is normal. No bile duct dilation. Pancreas: No mass or duct dilation. Spleen: Normal. Adrenals:No mass. Kidneys: No suspicious mass, obstructing stone, or hydronephrosis. GI tract: No small or large bowel dilation. Appendix not confidently visualized. Mesentery/Peritoneum: No ascites, mass, or free air. Retroperitoneum: No mass. Atherosclerotic abdominal aortic and/or arterial calcifications. Pelvis: Pelvic organs are within normal limits. Soft Tissues: Soft tissues and body wall unremarkable. Abdominopelvic bones: No acute osseous finding. IMPRESSION: No CT evidence of acute pulmonary embolus. Segmental/subsegmental right middle lobe and lingular opacities may represent atelectasis or pneumoni a. Presumed round atelectasis in the medial left lung base. Small left pleural effusion. No acute abdominopelvic process detected. Reviewed, dictated and finalized at location K. IMPRESSION: No CT evidence of acute pulmonary embolus. Segmental/subsegmental right middle lobe and lingular opacities may represent a telectasis or pneumonia. Presumed round atelectasis in the medial left lung bas e. Small left pleural effusion. No acute abdominopelvic process detected.
[2024-04-23 18:55] VITALS: BP 93/70; PULSE 81; RESP 18; TEMP 36.8; O2SAT 98
[2024-04-23 21:51] LABS: Basophils Absolute Auto 0.1 K/mm3 (0.0-0.1); Basophils Percent Auto 0.8 % (0.2-1.2); Eosinophils Percent Auto 0.1 % (0-4.4); Hematocrit 38.5 % (42.0-52.0); Hemoglobin 13.6 g/dL (14.0-18.0); Immature Granulocyte Absolute 0.23 K/mm3 (0.00-0.031); Immature Granulocyte Percent A 1.7 % (0-0.5); Lymphocytes Absolute Auto 0.89 K/mm3 (0.9-3.2); Lymphocytes Percent Auto 6.6 % (18.3-44.2); Mean Corpuscular HGB Conc 35.3 g/dl (32-36); Mean Corpuscular Volume 96.3 fl (80-100); Mean Platelet Volume 8.6 fl (7.4-10.4); Monocytes Absolute Auto 0.6 K/mm3 (0.1-0.6); Monocytes Percent Auto 4.6 % (2.6-8.5); Neutrophils Absolute Auto 11.6 K/mm3 (1.3-6.7); Neutrophils Percent Auto 86.2 % (45.5-73.1); Platelet Count Result 406 k/mm3 (150-375); Red Cell Distribution Width 15.6 % (11.5-14.5); White Blood Count 13.5 K/mm3 (4.5-10.0)
[2024-04-23 21:57] LABS: Add Urine Microscopic? YES; Appearance Urine Clear (Clear); Bacteria Urine None Seen /hpf; Bilirubin Urine Negative (Negative); Blood Urine Negative (Negative); Color Urine Dark Yellow (Yellow); Glucose Urine UA Negative (Negative); Ketones Urine Trace mg/dL (Negative); Leukocyte Esterase Ur Trace LEU/UL (Negative); Nitrate Urine Negative (Negative); Non Pathogenic Casts 0-2; Protein Urine 1+ mg/dL (Negative); RBC Urine 0-2 /hpf (0-2); Specific Grav Ur 1.017 (1.001-1.035); Squamous Epithelial Cell Urine None Seen /hpf (Few); WBC Urine 0-5 /hpf (0-3)
[2024-04-23 22:00] LABS: Lactic Acid Reflex 2.5 mmol/L (0.7-2.0); Ovalocytes 1+; Platelet Estimate Increased (Adequate); Schistocytes None Seen
[2024-04-23 22:01] LABS: Alanine Aminotransferase 69 U/L (6-50); Albumin Level 4.8 g/dL (3.5-5.1); Alkaline Phosphatase 143 U/L (38-126); Anion Gap 12 mmol/L (4-12); Aspartate Amino Transferase 117 U/L (17-59); Bilirubin,Total 1.4 mg/dL (0.2-1.3); Blood Urea Nitrogen 12 mg/dL (9-20); Calcium 9.4 mg/dL (8.4-10.2); Carbon Dioxide 28 mmol/L (22-30); Chloride 94 mmol/L (98-107); Estimated CRCL calculation 39 ml/min; Estimated Glomerular Filt Rate 50; Glucose 105 mg/dL (65-110); Lipase 18 U/L (23-300); Magnesium 1.9 mg/dL (1.6-2.3); Potassium 4.1 mmol/L (3.4-5.0); Sodium 134 mmol/L (137-145)
[2024-04-23 22:13] LABS: Troponin I < 0.012 ng/mL (0.000-0.034)
[2024-04-23 22:35] VITALS: BP 115/67; PULSE 76; RESP 16; O2SAT 100
[2024-04-23 23:30] VITALS: BP 106/86; PULSE 120; RESP 24; O2SAT 90
--- NOTE | 2024-04-23 23:31 | ED_ITS ---
HPI - General Adult General Chief complaint: Back Pain/Injury Stated complaint: back pain, difficulty urinating Time Seen by Provider: 04/23/24 21:30 History of Present Illness HPI narrative: Patient is a 63-year-old gentleman who presents emergency department with chief complaint of flank pain that radiates into his chest patient reports that he has had cough as a difficulty urinating. Patient reports symptoms are not improved by anything Related Data Home Medications Medication Instructions Recorded Confirmed lisinopril 10 mg tablet 10 mg PO DAILY 12/10/22 02/26/23 gabapentin 100 mg capsule 100 mg PO TID 02/26/23 02/26/23 tamsulosin 0.4 mg capsule 0.4 mg PO DAILY 02/26/23 02/26/23 Allergies Allergy/AdvReac Type Severity Reaction Status Date / Time No Known Allergies Allergy Verified 02/26/23 18:10 Review of Systems Review of Systems: A 10 system review of systems was completed on the patient and is negative except for what is stated in the HPI. Nursing and ancillary documentation was reviewed. [facility] Past Medical History Medical History Congestive heart failure Deep venous thrombosis Diet-controlled type 2 diabetes mellitus Esophageal cancer Status post surgical resection including partial gastrectomy and esophagectomy as well as chemo radiation Hypertension Hypothyroidism Myocardial infarction Surgical History Surgical History History of esophagectomy Family History Family History Father Acute myocardial infarction Congestive heart failure Mother Bone cancer Social History Social History Social History: Surrogate medical decision maker: Ana Laura Jaime, sibling. Code status: Full code. Smoking packs per day: 1 Smoking cigarettes per day: 20.0 Years smoked: 50 Smoking pack-years: 50.00 Smoking status: Former smoker Alcohol intake: current Drinks per week: 1 Substance use type: marijuana Last use: 02/26/23 Lack of Transportation: No Lack of Food: Never True Current Housing: I Have Housing Concerned About Future Housing: No Difficulty Paying Gas/Electric Bills: No Difficulty Paying for Meds: No Currently Unemployed: No Education: Decline to Answer Difficulty w/ Childcare or Family Care: No Additional living arrangements comments: Lives in [place] with brother. Additional occupation/education comments: Retired. Spiritual care concerns: No Exam Narrative: GENERAL: Well-appearing, well-nourished, and in no acute distress. HEAD: Normocephalic, atraumatic. EYES: PERRLA and EOMI. ENT: Nares clear, no rhinorrhea or epistaxis. Mucous membranes moist. NECK: Supple. CHEST: Clear to auscultation. No respiratory distress. HEART: Regular rate and rhythm. No murmur heard. Normal peripheral pulses. ABDOMEN: Soft, nontender, nondistended, normal active bowel sounds. EXTREMITIES: Normal range of motion. No edema. SKIN: Warm, dry, no rash. NEURO: No focal deficits. Alert and oriented x3. PSYCH: Normal mood and affect. Course Vital Signs Vital signs: Vital Signs Temperature 36.8 C 04/23/24 18:55 Pulse Rate 81 04/23/24 18:55 Respiratory Rate 18 04/23/24 18:55 Blood Pressure 93/70 L 04/23/24 18:55 Pulse Oximetry 98 04/23/24 18:55 Oxygen Delivery Room Air 04/23/24 18:55 Temperature 36.8 C 04/23/24 18:55 Pulse Rate 76 04/23/24 22:35 Respiratory Rate 16 04/23/24 22:35 Blood Pressure 115/67 04/23/24 22:35 Pulse Oximetry 100 04/23/24 22:35 Oxygen Delivery Room Air 04/23/24 18:55 Medical Decision Making [facility] Narrative Medical decision making narrative: Differential diagnosis includes CHF, pneumonia, dehydration, acute kidney injury, noncompliance Laboratory studies were obtained on the patient showed a white count of 13.5 patient has had a cough creatinine was 1.7 lactic acid was 2.5 bilirubin is up at 1.4 AST ALT were slightly elevated BNP was 3140 CTA of the chest abdomen pelvis showed No CT evidence of acute pulmonary embolus. Segmental/subsegmental right middle lobe and lingular opacities may represent atelectasis or pneumonia. Presumed round atelectasis in the medial left lung base. Small left pleural effusion. No acute abdominopelvic process detected. The patient was started on Rocephin Zithromax case was discussed with the hospitalist patient received gentle hydration and further care in the inpatient setting. Vital Signs Vital Signs: Vital Signs Temperature 36.8 C 04/23/24 18:55 Pulse Rate 81 04/23/24 18:55 Respiratory Rate 18 04/23/24 18:55 Blood Pressure 93/70 L 04/23/24 18:55 Pulse Oximetry 98 04/23/24 18:55 Oxygen Delivery Room Air 04/23/24 18:55 Temperature 36.8 C 04/23/24 18:55 Pulse Rate 76 04/23/24 22:35 Respiratory Rate 16 04/23/24 22:35 Blood Pressure 115/67 04/23/24 22:35 Pulse Oximetry 100 04/23/24 22:35 Oxygen Delivery Room Air 04/23/24 18:55 Lab Data 04/23/24 21:45 04/23/24 21:45 Labs: Lab Results 04/23/24 Range/Units 21:45 WBC 13.5 H (4.5-10.0) K/mm3 RBC 4.00 L (4.6-6.20) M/mm3 Hgb 13.6 L (14.0-18.0) g/dL Hct 38.5 L (42.0-52.0) % MCV 96.3 (80-100) fl MCH 34.0 (26-34) pg MCHC 35.3 (32-36) g/dl RDW 15.6 H (11.5-14.5) % Plt Count 406 H (150-375) k/mm3 MPV 8.6 (7.4-10.4) fl Immature Gran % (Auto) 1.7 H (0-0.5) % Neut % (Auto) 86.2 H (45.5-73.1) % Lymph % (Auto) 6.6 L (18.3-44.2) % Rankin % (Auto) 4.6 (2.6-8.5) % Eos % (Auto) 0.1 (0-4.4) % Baso % (Auto) 0.8 (0.2-1.2) % Lymph # (Auto) 0.89 L (0.9-3.2) K/mm3 Rankin # (Auto) 0.6 (0.1-0.6) K/mm3 Eos # (Auto) 0.0 (0-0.3) K/mm3 Baso # (Auto) 0.1 (0.0-0.1) K/mm3 Abs Immat Gran (auto) 0.23 H (0.00-0.031) K/mm3 Absolute Neuts (auto) 11.6 H (1.3-6.7) K/mm3 Absolute Nucleated RBC 0.000 (0.0-0.012) K/mm3 Nucleated RBC % 0.0 (0.0-0.2) % Platelet Estimate Increased (Adequate) Ovalocytes 1+ Schistocytes None seen Sodium 134 L (137-145) mmol/L Potassium 4.1 (3.4-5.0) mmol/L Chloride 94 L (98-107) mmol/L Carbon Dioxide 28 (22-30) mmol/L Anion Gap 12 (4-12) mmol/L BUN 12 (9-20) mg/dL Creatinine 1.70 H (0.7-1.3) mg/dL Estim Creat Clear Calc 39 ml/min Estimated GFR 50 L (59 - ) Glucose 105 (65-110) mg/dL Lactic Acid 2.5 H (0.7-2.0) mmol/L Calcium 9.4 (8.4-10.2) mg/dL Magnesium 1.9 (1.6-2.3) mg/dL Total Bilirubin 1.4 H (0.2-1.3) mg/dL AST 117 H (17-59) U/L ALT 69 H (6-50) U/L Alkaline Phosphatase 143 H (38-126) U/L Troponin I < 0.012 (0.000-0.034) ng/mL Total Protein 10.0 H (6.3-8.2) g/dL Albumin 4.8 (3.5-5.1) g/dL Lipase 18 L (23-300) U/L Urine Color Dark yellow (Yellow) Urine Appearance Clear (Clear) Urine pH 6.0 (5.0-9.0) Ur Specific [place] 1.017 (1.001-1.035) Urine Protein 1+ H (Negative) mg/dL Urine Glucose (UA) Negative (Negative) mg/dL Urine Ketones Trace H (Negative) mg/dL Ur Blood (Man) Negative (Negative) Urine Nitrate Negative (Negative) Urine Bilirubin Negative (Negative) Urine Urobilinogen 1.0 (<2.0) mg/dL Leukocyte Esterase Rfl Trace H (Negative) DANNY/UL Urine RBC 0-2 (0-2) /hpf Urine WBC 0-5 (0-3) /hpf Ur Squamous Epith Cells None seen (Few) /hpf Urine Bacteria None seen /hpf Urine Casts 0-2 Discharge Plan Discharge Clinical Impression: Pneumonia, Dehydration Patient Disposition: Still a Patient Condition: Stable Prescriptions: No Action lisinopril 10 mg Tablet 10 mg PO DAILY Hold Instructions: HOLD tamsulosin 0.4 mg capsule 0.4 mg PO DAILY gabapentin 100 mg capsule 100 mg PO TID levothyroxine [Synthroid] 100 mcg Tablet 100 mcg PO DAILY@0630 Qty: 30 3RF Follow-up/Referrals: PHYSICIAN,[employer] [Primary Care Provider] -
[2024-04-23 23:45] VITALS: BP 127/89; PULSE 127; RESP 28; O2SAT 100
[2024-04-24] VITALS (10 sets, daily range): BP systolic 88–115; BP diastolic 54–81; PULSE 61–136; RESP 12–34; TEMP 36.1–36.6; O2SAT 90–100; BMI 21.9; BMI 21.8
[2024-04-24 00:02] LABS: NT Pro B Type Natriuretic Pept 3140 pg/mL (19.9-100)
[2024-04-24] MEDS: AZITHROMYCIN 500 MG/NS 250 ML 500 MG/250 ML BAG 250 MG IVPB ×2 (00:42→21:52)
[2024-04-24] MEDS: SODIUM CHLORIDE 0.9% IV 1,000 ML 999 ML IV CONT ×2 (00:42)
[2024-04-24 00:49] LABS: Reflex Lactic Acid Yes or No Add Lactic
[2024-04-24 01:56] LABS: Amphetamine Screen Urine Negative (Negative); Barbiturate Screen Urine Negative (Negative); Benzodiazepines Screen Urine Negative (Negative); Cannabinoid Screen Urine Positive (Negative); Cocaine Screen Urine Positive (Negative); Methadone Screen Urine Negative (Negative); Opiate Screen Urine Negative (Negative); Phencyclidine Screen Urine Negative (Negative)
[2024-04-24 01:59] LABS: Ethanol < 10 mg/dL (<10)
[2024-04-24 02:00] LABS: Lactic Acid 1.6 mmol/L (0.7-2.0)
--- NOTE | 2024-04-24 02:00 | ADMGEN ---
This patient, Garrick Jaime, was admitted to [facility] Surg Room 303-01. Patient/family oriented to hospital policies and general routines including ID bracelet, bed and alarms, visiting hours, pain management, procedures, bathroom and other care routines, personal items, smoking policy, room service/diet, and visiting hours. Information on how to activate the Rapid Response Team has been discussed. Patient/Family are encouraged to report perceived risks to care and to ask questions if they do not understand what they are told or what they should do.
[2024-04-24] MEDS: SODIUM CHLORIDE 0.9% IV 1,000 ML 100 ML IV CONT (02:13)
--- NOTE | 2024-04-24 07:59 | P.HP_ITS ---
H&P: HPI History of Present Illness Date/Time: 04/24/24 07:59 Chief Complaint: Productive cough, shortness breast Narrative: Patient is a 63-year-old gentleman with history of hypertension, CHF, DVT, diabetes hypothyroidism, present ED with a chief productive cough and shortness of breath. Patient has been having cough and yellow greenish sputum more than a week. And patient has progressive dyspnea. Patient has left lower back pain, worse with cough and deep breath. Patient denies nausea vomiting diarrhea. Patient has intermittent chills and fever. Patient is tobacco dependence. Upon arrival to ED, patient was afebrile, hypotensive no O2 desaturation on room air, lab showed leukocytosis of 13,500, anemia hemoglobin 13.6, hyponatremia 134, elevated creatinine 1.7, baseline creatinine 0.8, April 10 UA showed the +protein, trace ketone, trace esterase. CTA chest abdomen pelvis showed no PE, but a segmental right middle lobe and lingular opacity represent pneumonia Review of Systems Review of Systems: ROS negative except above PMFSH Past Medical History Medical History Congestive heart failure Deep venous thrombosis Diet-controlled type 2 diabetes mellitus Esophageal cancer Status post surgical resection including partial gastrectomy and esophagectomy as well as chemo radiation Hypertension Hypothyroidism Myocardial infarction Surgical History Surgical History History of esophagectomy Family History Family History Father Acute myocardial infarction Congestive heart failure Mother Bone cancer Social History Social History Social History: Surrogate medical decision maker: Ana Laura Jaime, sibling. Code status: Full code. Smoking packs per day: 1 Smoking cigarettes per day: 20.0 Years smoked: 50 Smoking pack-years: 50.00 Smoking status: Former smoker Alcohol intake: current Drinks per week: 28 Substance use type: marijuana Other substance usage details: last drink 04/23/24 Last use: 04/22/24 Do You Feel Safe in your Home?: Yes Lack of Transportation: YES Lack of Food: Never True Current Housing: I Do Not Have Housing Concerned About Future Housing: YES Difficulty Paying Gas/Electric Bills: No Difficulty Paying for Meds: No Currently Unemployed: No Education: High School Diploma/GED Difficulty w/ Childcare or Family Care: No Additional living arrangements comments: Lives in [place] with brother. Additional occupation/education comments: Retired. Spiritual care concerns: No Meds Home Medications and Allergies Home Medications Medication Instructions Recorded Confirmed Type tamsulosin 0.4 mg capsule 0.4 mg PO DAILY 02/26/23 04/24/24 History Allergies Allergy/AdvReac Type Severity Reaction Status Date / Time No Known Allergies Allergy Verified 02/26/23 18:10 Vital Signs Vital Signs - 24 hr 04/23/24 18:55 04/23/24 22:35 04/24/24 01:58 Temperature 98.3 F 97.7 F Pulse Rate 81 76 68 Respiratory Rate 18 16 18 Blood Pressure 93/70 L 115/67 115/67 Pulse Oximetry 98 100 98 Oxygen Delivery Room Air 04/24/24 01:58 04/23/24 23:30 04/24/24 02:14 Temperature 97.9 F 97.9 F Pulse Rate 68 120 H 70 Respiratory Rate 18 24 H 16 Blood Pressure 115/67 106/86 114/75 Pulse Oximetry 98 90 100 Oxygen Delivery 04/24/24 02:03 04/23/24 23:45 04/24/24 00:07 Temperature Pulse Rate 127 H 132 H Respiratory Rate 28 H 34 H Blood Pressure 127/89 108/81 Pulse Oximetry 100 90 Oxygen Delivery Room Air 04/24/24 01:00 04/24/24 04:41 04/24/24 05:49 Temperature Pulse Rate 136 H Respiratory Rate 19 Blood Pressure 97/72 L 88/54 L 92/64 L Pulse Oximetry 97 Oxygen Delivery 04/24/24 05:50 Temperature 97.0 F L Pulse Rate 64 Respiratory Rate 13 Blood Pressure 88/54 L Pulse Oximetry 97 Oxygen Delivery Exam Narrative: GENERAL: Pleasant, in no acute distress. Well-nourished. - EYES: EOMI. Anicteric. - HENT: Moist mucous membranes. - LUNGS: Coarse breath sound on the lef t lower base. - CARDIOVASCULAR: Regular rate and rhyth m. No murmur. No JVD. - ABDOMEN: Soft, non-tender and non-dist ended. No palpable masses. - EXTREMITIES: No edema. Peripheral puls es 2+. Non-tender. - NEUROLOGIC: No focal neurological defi cits. CN II-XII grossly intact. - PSYCHIATRIC: Awake, Alert and oriented x 3. Appropriate mood and affect. - SKIN: No rashes or lesions. Warm. - LYMPH: No cervical lymphadenopathy. H&P: Results Labs Labs: Short CBC 04/23/24 Range/Units 21:45 WBC 13.5 H (4.5-10.0) K/mm3 Hgb 13.6 L (14.0-18.0) g/dL Hct 38.5 L (42.0-52.0) % Plt Count 406 H (150-375) k/mm3 BMP 04/23/24 21:45 Sodium 134 L Potassium 4.1 Chloride 94 L Carbon Dioxide 28 BUN 12 Creatinine 1.70 H Glucose 105 Calcium 9.4 Cardiac Enzymes 04/23/24 Range/Units 21:45 Troponin I < 0.012 (0.000-0.034) ng/mL Liver Function 04/23/24 Range/Units 21:45 Total Bilirubin 1.4 H (0.2-1.3) mg/dL AST 117 H (17-59) U/L ALT 69 H (6-50) U/L Alkaline Phosphatase 143 H (38-126) U/L Albumin 4.8 (3.5-5.1) g/dL Urine 04/23/24 Range/Units 21:45 Urine Color Dark yellow (Yellow) Urine Appearance Clear (Clear) Urine pH 6.0 (5.0-9.0) Ur Specific [place] 1.017 (1.001-1.035) Urine Protein 1+ H (Negative) mg/dL Urine Glucose (UA) Negative (Negative) mg/dL Assessment and Plan Assessment and plan (1) Multifocal pneumonia: Code(s): J18.9 - Pneumonia, unspecified organism Status: Acute (2) Dehydration: Code(s): E86.0 - Dehydration Status: Acute (3) Acute renal failure: Code(s): N17.9 - Acute kidney failure, unspecified Status: Acute (4) Macrocytic anemia: Code(s): D53.9 - Nutritional anemia, unspecified Status: Acute (5) Hypothyroidism: Code(s): E03.9 - Hypothyroidism, unspecified Status: Acute (6) Diet-controlled type 2 diabetes mellitus: Code(s): E11.9 - Type 2 diabetes mellitus without complications Status: Acute (7) Hypothyroidism: Code(s): E03.9 - Hypothyroidism, unspecified Status: Acute (8) Hypertension: Code(s): I10 - Essential (primary) hypertension Status: Acute (9) Hypotension due to hypovolemia: Code(s): E86.1 - Hypovolemia Status: Acute (10) Severe sepsis: Code(s): A41.9 - Sepsis, unspecified organism; R65.20 - Severe sepsis without septic shock Status: Acute Plan Severe sepsis Upon arrival to ED, patient was found have tachycardia, tachypnea, leukocytosis 13,500, meeting criteria of sepsis, possible resulting from multifocal pneumonia Received normal saline bolus 2 L in the ED, patient is on normal saline 150 mL/hour Patient received azithromycin ceftriaxone IV in the ED, continue azithromycin ceftriaxone IV, increase ceftriaxone to 2 g IV daily Continue fluid resuscitation. If patient fails fluid resuscitation,, transfer patient to ICU to start vasopressors and close monitoring Follow-up blood culture, lactic acid Community-acquired pneumonia Patient has a productive cough with week, and per blood shortness breath. Patient has yellow greenish sputum CT abdomen pelvis suggest multifocal pneumonia Antibiotics see above Hypotension Likely resulting from sepsis and hypovolemia Received fluid resuscitation in the ED Treat underlying disease Continue resuscitation Monitor vital signs closely CELESTINE Elevated creatinine 1.7, baseline 0.9 UA unremarkable Possible secondary to sepsis and hypotension Avoid nephrotoxic medication Follow-up BMP Essential hypertension Hold hypertension medication because of hypotension Hospitalist MIPS Advance Care Plan I have confirmed that the patient's Advanced Care Plan is present, code status is documented, or surrogate decision maker is listed in patient medical record.: Yes Medication Reconciliation I have utilized all available resources to obtain, update and review the patients current medications (includes all prescriptions, OTC, herbals, cannabis, and nutritional supplements).: Yes
[2024-04-24 09:24] LABS: Lactic Acid Reflex 1.2 mmol/L (0.7-2.0)
[2024-04-24] MEDS: SODIUM CHLORIDE 0.9% IV 1,000 ML 150 ML IV CONT ×2 (12:24→19:55)
[2024-04-24] MEDS: ACETAMINOPHEN 325 MG TABLET 650 MG PO (19:55)
[2024-04-24] MEDS: cefTRIAXone 2 GM/NS 100 ML 2 GM/100 ML BAG IVPB (21:18)
[2024-04-25] MEDS: SODIUM CHLORIDE 0.9% IV 1,000 ML 150 ML IV CONT ×2 (04:18→14:09)
[2024-04-25 06:00] VITALS: BP 140/63; PULSE 57; RESP 12; TEMP 36.2; O2SAT 97
[2024-04-25 06:58] LABS: Basophils Absolute Auto 0.1 K/mm3 (0.0-0.1); Basophils Percent Auto 0.5 % (0.2-1.2); Eosinophils Absolute Auto 0.1 K/mm3 (0-0.3); Eosinophils Percent Auto 1.5 % (0-4.4); Hematocrit 26.7 % (42.0-52.0); Hemoglobin 9.4 g/dL (14.0-18.0); Immature Granulocyte Absolute 0.11 K/mm3 (0.00-0.031); Immature Granulocyte Percent A 1.2 % (0-0.5); Lymphocytes Absolute Auto 1.06 K/mm3 (0.9-3.2); Lymphocytes Percent Auto 11.6 % (18.3-44.2); Mean Corpuscular HGB Conc 35.2 g/dl (32-36); Mean Corpuscular Hemoglobin 34.2 pg (26-34); Mean Corpuscular Volume 97.1 fl (80-100); Mean Platelet Volume 8.9 fl (7.4-10.4); Monocytes Absolute Auto 0.5 K/mm3 (0.1-0.6); Monocytes Percent Auto 5.4 % (2.6-8.5); Neutrophils Absolute Auto 7.3 K/mm3 (1.3-6.7); Neutrophils Percent Auto 79.8 % (45.5-73.1); Platelet Count Result 319 k/mm3 (150-375); Red Blood Count 2.75 M/mm3 (4.6-6.20); Red Cell Distribution Width 15.9 % (11.5-14.5); White Blood Count 9.1 K/mm3 (4.5-10.0)
[2024-04-25 07:12] LABS: Anion Gap 5 mmol/L (4-12); Blood Urea Nitrogen 14 mg/dL (9-20); Calcium 7.5 mg/dL (8.4-10.2); Carbon Dioxide 24 mmol/L (22-30); Chloride 104 mmol/L (98-107); Estimated CRCL calculation 38 ml/min; Estimated Glomerular Filt Rate 50; Glucose 79 mg/dL (65-110); Potassium 3.8 mmol/L (3.4-5.0); Sodium 133 mmol/L (137-145)
[2024-04-25 14:00] VITALS: BP 100/77; PULSE 65; RESP 14; TEMP 36.7; O2SAT 98
--- NOTE | 2024-04-25 14:47 | PM.IMPN ---
Progress Note: A&P Assessment and Plan (1) Multifocal pneumonia: Code(s): J18.9 - Pneumonia, unspecified organism Status: Acute (2) Dehydration: Code(s): E86.0 - Dehydration Status: Acute (3) Acute renal failure: Code(s): N17.9 - Acute kidney failure, unspecified Status: Acute (4) Macrocytic anemia: Code(s): D53.9 - Nutritional anemia, unspecified Status: Acute (5) Hypothyroidism: Code(s): E03.9 - Hypothyroidism, unspecified Status: Acute (6) Diet-controlled type 2 diabetes mellitus: Code(s): E11.9 - Type 2 diabetes mellitus without complications Status: Acute (7) Hypertension: Code(s): I10 - Essential (primary) hypertension Status: Acute (8) Hypotension due to hypovolemia: Code(s): E86.1 - Hypovolemia Status: Acute (9) Severe sepsis: Code(s): A41.9 - Sepsis, unspecified organism; R65.20 - Severe sepsis without septic shock Status: Acute Plan # severe sepsis Upon arrival to ED, patient was found have tachycardia, tachypnea, leukocytosis 13,500, meeting criteria of sepsis, possible resulting from multifocal pneumonia Received normal saline bolus 2 L in the ED, patient is on normal saline 150 mL/hour Patient received azithromycin ceftriaxone IV in the ED, continue azithromycin ceftriaxone IV, increase ceftriaxone to 2 g IV daily Continue fluid resuscitation. If patient fails fluid resuscitation,, transfer patient to ICU to start vasopressors and close monitoring Follow-up blood culture, lactic acid #Community-acquired pneumonia Patient has a productive cough with week, and per blood shortness breath. Patient has yellow greenish sputum CT abdomen pelvis suggest multifocal pneumonia Antibiotics see above #Hypotension Likely resulting from sepsis and hypovolemia Received fluid resuscitation in the ED Treat underlying disease Continue resuscitation this has improved #CELESTINE Elevated creatinine 1.7, baseline 0.9 UA unremarkable Possible secondary to sepsis and hypotension Avoid nephrotoxic medication Follow-up BMP #Essential hypertension Hold hypertension medication because of hypotension # anemia hemoglobin down to 9.4 could be hemodilutional. No signs of bleeding. Will continue to monitor # DVT prophylaxis Lovenox # Code status full code Subjective Date/time seen: 04/25/24 14:47 Interval history: No overnight events. Complains of cough under right-sided back pain Review of Systems Review of Systems: All systems reviewed & are unremarkable except as noted in HPI and below Exam Narrative: GENERAL: Pleasant, in no acute distress. Well-nourished. - EYES: EOMI. Anicteric. - HENT: Moist mucous membranes. - LUNGS: Coarse breath sound on the left lower base. - CARDIOVASCULAR: Regular rate and rhythm. No murmur. No JVD. - ABDOMEN: Soft, non-tender and non-distended. No palpable masses. - EXTREMITIES: No edema. Peripheral pulses 2+. Non-tender. - NEUROLOGIC: No focal neurological deficits. CN II-XII grossly intact. - PSYCHIATRIC: Awake, Alert and oriented x 3. Appropriate mood and affect. - SKIN: No rashes or lesions. Warm. - LYMPH: No cervical lymphadenopathy. Objective Data Vital Signs Vital Signs: Vital Signs - 24 hr 04/24/24 21:43 04/24/24 20:00 04/25/24 06:00 Temperature 97.5 F L 97.2 F L Pulse Rate 62 57 L Respiratory Rate 12 12 Blood Pressure 90/67 L 140/63 Pulse Oximetry 99 97 Oxygen Delivery Room Air 04/25/24 09:37 04/25/24 14:00 Temperature 98.1 F Pulse Rate 65 Respiratory Rate 14 Blood Pressure 100/77 Pulse Oximetry 98 Oxygen Delivery Room Air Intake/Output Intake/Output: Intake & Output 04/22/24 04/23/24 04/24/24 04/25/24 23:59 23:59 23:59 23:59 Intake Total 3348 2873 Output Total 300 1100 Balance 3048 1773 Meds/Results Medications: Active Medications Generic Name Dose Route Start Last Admin Trade Name Manishq PRN Reason Stop Dose Admin Acetaminophen 650 mg 04/24/24 00:38 04/24/24 19:55 Acetaminophen 325 Mg Tablet PO 650 mg Q4H PRN Administration Mild Pain (1-3) or Fever Azithromycin 500 mg in 250 mls @ 250 mls/hr 04/24/24 22:00 04/24/24 21:52 Zithromax IVPB 250 mls/hr Q24H ALEX Administration Sodium Chloride 1,000 mls @ 150 mls/hr 04/24/24 00:40 04/25/24 14:19 Normal Saline Iv IV CONT Not Given .Q6H40M ALEX Ceftriaxone Sodium 2 gm in 100 mls @ 200 mls/hr 04/24/24 22:00 04/24/24 21:18 Rocephin 2 Gm/Ns 100 Ml IVPB 200 mls/hr Q24H ALEX Administration Radiology Results: ITS Impressions Chest/Abdomen/Pelvis CTA 04/23/24 22:57 IMPRESSION: No CT evidence of acute pulmonary embolus. Segmental/subsegmental right middle lobe and lingular opacities may represent atelectasis or pneumonia. Presumed round atelectasis in the medial left lung base. Small left pleural effusion. No acute abdominopelvic process detected. Labs Labs: Laboratory Results - last 24 hr 04/25/24 06:30 WBC 9.1 RBC 2.75 L Hgb 9.4 L D Hct 26.7 L MCV 97.1 MCH 34.2 H MCHC 35.2 RDW 15.9 H Plt Count 319 MPV 8.9 Immature Gran % (Auto) 1.2 H Neut % (Auto) 79.8 H Lymph % (Auto) 11.6 L [place] % (Auto) 5.4 Eos % (Auto) 1.5 Baso % (Auto) 0.5 Lymph # (Auto) 1.06 [place] # (Auto) 0.5 Eos # (Auto) 0.1 Baso # (Auto) 0.1 Abs Immat Gran (auto) 0.11 H Absolute Neuts (auto) 7.3 H Absolute Nucleated RBC 0.000 Nucleated RBC % 0.0 Sodium 133 L Potassium 3.8 Chloride 104 Carbon Dioxide 24 Anion Gap 5 BUN 14 Creatinine 1.70 H Estim Creat Clear Calc 38 Estimated GFR 50 L Glucose 79 Calcium 7.5 L
[2024-04-25 20:27] VITALS: BP 104/79; PULSE 84; RESP 18; TEMP 37.2; O2SAT 98
[2024-04-25] MEDS: AZITHROMYCIN 500 MG/NS 250 ML 500 MG/250 ML BAG 250 MG IVPB (21:00)
[2024-04-25] MEDS: cefTRIAXone 2 GM/NS 100 ML 2 GM/100 ML BAG IVPB (22:19)
[2024-04-25] MEDS: ACETAMINOPHEN 325 MG TABLET 650 MG PO (22:22)
[2024-04-26] MEDS: SODIUM CHLORIDE 0.9% IV 1,000 ML 150 ML IV CONT (02:28)
[2024-04-26 05:12] VITALS: BP 102/86; PULSE 81; RESP 18; TEMP 37.2; O2SAT 99
[2024-04-26 06:23] LABS: Basophils Absolute Auto 0.1 K/mm3 (0.0-0.1); Basophils Percent Auto 0.8 % (0.2-1.2); Eosinophils Absolute Auto 0.2 K/mm3 (0-0.3); Eosinophils Percent Auto 2.5 % (0-4.4); Hematocrit 26.5 % (42.0-52.0); Hemoglobin 9.3 g/dL (14.0-18.0); Immature Granulocyte Absolute 0.11 K/mm3 (0.00-0.031); Immature Granulocyte Percent A 1.7 % (0-0.5); Lymphocytes Absolute Auto 0.99 K/mm3 (0.9-3.2); Lymphocytes Percent Auto 15.4 % (18.3-44.2); Mean Corpuscular HGB Conc 35.1 g/dl (32-36); Mean Corpuscular Hemoglobin 34.3 pg (26-34); Mean Corpuscular Volume 97.8 fl (80-100); Mean Platelet Volume 8.9 fl (7.4-10.4); Monocytes Absolute Auto 0.3 K/mm3 (0.1-0.6); Monocytes Percent Auto 4.7 % (2.6-8.5); Neutrophils Absolute Auto 4.8 K/mm3 (1.3-6.7); Neutrophils Percent Auto 74.9 % (45.5-73.1); Platelet Count Result 338 k/mm3 (150-375); Red Blood Count 2.71 M/mm3 (4.6-6.20); White Blood Count 6.4 K/mm3 (4.5-10.0)
[2024-04-26 06:36] LABS: Alanine Aminotransferase 42 U/L (6-50); Alkaline Phosphatase 87 U/L (38-126); Anion Gap 6 mmol/L (4-12); Aspartate Amino Transferase 70 U/L (17-59); Bilirubin,Total 0.2 mg/dL (0.2-1.3); Blood Urea Nitrogen 11 mg/dL (9-20); Calcium 7.8 mg/dL (8.4-10.2); Carbon Dioxide 24 mmol/L (22-30); Chloride 105 mmol/L (98-107); Estimated CRCL calculation 49 ml/min; Estimated Glomerular Filt Rate > 60; Glucose 85 mg/dL (65-110); Magnesium 1.8 mg/dL (1.6-2.3); Potassium 3.7 mmol/L (3.4-5.0); Sodium 135 mmol/L (137-145)
[2024-04-26] MEDS: ENOXAPARIN 40 MG/0.4 ML SYRINGE SUB-Q (09:01)
[2024-04-26] MEDS: TAMSULOSIN HCL 0.4 MG CAPSULE PO (11:38)
--- NOTE | 2024-04-26 12:05 | P.PNIM_ITS ---
Progress Note: A&P Assessment and Plan (1) Multifocal pneumonia: Code(s): J18.9 - Pneumonia, unspecified organism Status: Acute (2) Dehydration: Code(s): E86.0 - Dehydration Status: Acute (3) Acute renal failure: Code(s): N17.9 - Acute kidney failure, unspecified Status: Acute (4) Macrocytic anemia: Code(s): D53.9 - Nutritional anemia, unspecified Status: Acute (5) Hypothyroidism: Code(s): E03.9 - Hypothyroidism, unspecified Status: Acute (6) Diet-controlled type 2 diabetes mellitus: Code(s): E11.9 - Type 2 diabetes mellitus without complications Status: Acute (7) Hypertension: Code(s): I10 - Essential (primary) hypertension Status: Acute (8) Hypotension due to hypovolemia: Code(s): E86.1 - Hypovolemia Status: Acute (9) Severe sepsis: Code(s): A41.9 - Sepsis, unspecified organism; R65.20 - Severe sepsis without septic shock Status: Acute Plan # severe sepsis Upon arrival to ED, patient was found have tachycardia, tachypnea, leukocytosis 13,500, meeting criteria of sepsis, possible resulting from multifocal pneumonia Received normal saline bolus 2 L in the ED, patient is on normal saline 150 mL/hour Patient received azithromycin ceftriaxone IV in the ED, continue azithromycin ceftriaxone IV, increase ceftriaxone to 2 g IV daily Stop IV fluid. #Community-acquired pneumonia Patient has a productive cough with week, and per blood shortness breath. Patient has yellow greenish sputum CT abdomen pelvis suggest multifocal pneumonia Antibiotics see above #Hypotension Likely resulting from sepsis and hypovolemia Received fluid resuscitation in the ED Treat underlying disease Continue resuscitation this has improved #CELESTINE Elevated creatinine 1.7, baseline 0.9 UA unremarkable Possible secondary to sepsis and hypotension Avoid nephrotoxic medication Follow-up BMP with improvement #Essential hypertension Hold hypertension medication because of hypotension # anemia hemoglobin down to 9.4 could be hemodilutional. No signs of bleeding. Will continue to monitor # DVT prophylaxis Lovenox # Code status full code Subjective Date/time seen: 04/26/24 12:05 Interval history: No overnight events. Feeling better. Still has some cough. Denies any new complaints. Review of Systems Review of Systems: All systems reviewed & are unremarkable except as noted in HPI and below Exam Narrative: GENERAL: Pleasant, in no acute distress. Well-nourished. - EYES: EOMI. Anicteric. - HENT: Moist mucous membranes. - LUNGS: Coarse breath sound on the lef t lower base. - CARDIOVASCULAR: Regular rate and rhyth m. No murmur. No JVD. - ABDOMEN: Soft, non-tender and non-dist ended. No palpable masses. - EXTREMITIES: No edema. Peripheral puls es 2+. Non-tender. - NEUROLOGIC: No focal neurological defi cits. CN II-XII grossly intact. - PSYCHIATRIC: Awake, Alert and oriented x 3. Appropriate mood and affect. - SKIN: No rashes or lesions. Warm. - LYMPH: No cervical lymphadenopathy. Objective Data Vital Signs Vital Signs: Vital Signs - 24 hr 04/25/24 14:00 04/25/24 20:27 04/25/24 20:00 Temperature 98.1 F 99 F Pulse Rate 65 84 Respiratory Rate 14 18 Blood Pressure 100/77 104/79 Pulse Oximetry 98 98 Oxygen Delivery Room Air 04/26/24 05:12 04/26/24 09:00 Temperature 98.9 F Pulse Rate 81 Respiratory Rate 18 Blood Pressure 102/86 Pulse Oximetry 99 Oxygen Delivery Room Air Intake/Output Intake/Output: Intake & Output 04/23/24 04/24/24 04/25/24 04/26/24 23:59 23:59 23:59 23:59 Intake Total 3698 4235 640 Output Total 300 1400 1400 Balance 3398 2835 -172 Meds/Results Medications: Active Medications Generic Name Dose Route Start Last Admin Trade Name Freq PRN Reason Stop Dose Admin Acetaminophen 650 mg 04/24/24 00:38 04/25/24 22:22 Acetaminophen 325 Mg Tablet PO 650 mg Q4H PRN Administration Mild Pain (1-3) or Fever Enoxaparin Sodium 40 mg 04/26/24 09:00 04/26/24 09:01 Enoxaparin 40 Mg/0.4 Ml Syringe SUB-Q 40 mg DAILY ALEX Administration Azithromycin 500 mg in 250 mls @ 250 mls/hr 04/24/24 22:00 04/25/24 21:00 Zithromax IVPB 250 mls/hr Q24H ALEX Administration Ceftriaxone Sodium 2 gm in 100 mls @ 200 mls/hr 04/24/24 22:00 04/25/24 22:19 Rocephin 2 Gm/Ns 100 Ml IVPB 200 mls/hr Q24H ALEX Administration Tamsulosin HCl 0.4 mg 04/26/24 10:25 04/26/24 11:38 Tamsulosin Hcl 0.4 Mg Capsule PO 0.4 mg DAILY ALEX Administration Radiology Results: ITS Impressions Chest/Abdomen/Pelvis CTA 04/23/24 22:57 IMPRESSION: No CT evidence of acute pulmonary embolus. Segmental/subsegmental right middle lobe and lingular opacities may represent atelectasis or pneumonia. Presumed round atelectasis in the medial left lung base. Small left pleural effusion. No acute abdominopelvic process detected. Labs Labs: Laboratory Results - last 24 hr 04/26/24 05:48 WBC 6.4 RBC 2.71 L Hgb 9.3 L Hct 26.5 L MCV 97.8 MCH 34.3 H MCHC 35.1 RDW 16.0 H Plt Count 338 MPV 8.9 Immature Gran % (Auto) 1.7 H Neut % (Auto) 74.9 H Lymph % (Auto) 15.4 L [place] % (Auto) 4.7 Eos % (Auto) 2.5 Baso % (Auto) 0.8 Lymph # (Auto) 0.99 [place] # (Auto) 0.3 Eos # (Auto) 0.2 Baso # (Auto) 0.1 Abs Immat Gran (auto) 0.11 H Absolute Neuts (auto) 4.8 Absolute Nucleated RBC 0.000 Nucleated RBC % 0.0 Sodium 135 L Potassium 3.7 Chloride 105 Carbon Dioxide 24 Anion Gap 6 BUN 11 Creatinine 1.30 Estim Creat Clear Calc 49 Estimated GFR > 60 Glucose 85 Calcium 7.8 L Magnesium 1.8 Total Bilirubin 0.2 AST 70 H ALT 42 Alkaline Phosphatase 87 Total Protein 6.0 L Albumin 3.0 L
[2024-04-26 14:00] VITALS: BP 114/90; PULSE 62; RESP 16; TEMP 36.7; O2SAT 100
[2024-04-26] MEDS: AZITHROMYCIN 500 MG/NS 250 ML 500 MG/250 ML BAG 250 MG IVPB (20:23)
[2024-04-26] MEDS: ACETAMINOPHEN 325 MG TABLET 650 MG PO (20:27)
[2024-04-26 21:05] VITALS: BP 108/68; PULSE 67; RESP 16; TEMP 36.8; O2SAT 99
[2024-04-26] MEDS: cefTRIAXone 2 GM/NS 100 ML 2 GM/100 ML BAG IVPB (21:49)
[2024-04-27 05:02] VITALS: BP 105/77; PULSE 70; RESP 14; TEMP 36.5; O2SAT 100
[2024-04-27 07:32] LABS: Basophils Absolute Auto 0.1 K/mm3 (0.0-0.1); Basophils Percent Auto 1.6 % (0.2-1.2); Eosinophils Absolute Auto 0.1 K/mm3 (0-0.3); Eosinophils Percent Auto 2.8 % (0-4.4); Hematocrit 27.4 % (42.0-52.0); Hemoglobin 9.1 g/dL (14.0-18.0); Immature Granulocyte Absolute 0.11 K/mm3 (0.00-0.031); Immature Granulocyte Percent A 2.6 % (0-0.5); Lymphocytes Absolute Auto 0.89 K/mm3 (0.9-3.2); Lymphocytes Percent Auto 20.7 % (18.3-44.2); Mean Corpuscular HGB Conc 33.2 g/dl (32-36); Mean Corpuscular Hemoglobin 32.7 pg (26-34); Mean Corpuscular Volume 98.6 fl (80-100); Mean Platelet Volume 9.5 fl (7.4-10.4); Monocytes Absolute Auto 0.4 K/mm3 (0.1-0.6); Monocytes Percent Auto 8.6 % (2.6-8.5); Neutrophils Absolute Auto 2.7 K/mm3 (1.3-6.7); Neutrophils Percent Auto 63.7 % (45.5-73.1); Platelet Count Result 380 k/mm3 (150-375); Red Blood Count 2.78 M/mm3 (4.6-6.20); White Blood Count 4.3 K/mm3 (4.5-10.0)
[2024-04-27 08:02] LABS: Alanine Aminotransferase 62 U/L (6-50); Albumin Level 3.2 g/dL (3.5-5.1); Alkaline Phosphatase 95 U/L (38-126); Anion Gap 7 mmol/L (4-12); Aspartate Amino Transferase 101 U/L (17-59); Bilirubin,Total 0.2 mg/dL (0.2-1.3); Blood Urea Nitrogen 9 mg/dL (9-20); Calcium 7.9 mg/dL (8.4-10.2); Carbon Dioxide 25 mmol/L (22-30); Chloride 104 mmol/L (98-107); Estimated CRCL calculation 49 ml/min; Estimated Glomerular Filt Rate > 60; Glucose 67 mg/dL (65-110); Magnesium 1.9 mg/dL (1.6-2.3); Potassium 3.8 mmol/L (3.4-5.0); Sodium 136 mmol/L (137-145)
[2024-04-27] MEDS: TAMSULOSIN HCL 0.4 MG CAPSULE PO (08:50)
[2024-04-27] MEDS: ENOXAPARIN 40 MG/0.4 ML SYRINGE SUB-Q (08:50)
--- NOTE | 2024-04-27 11:41 | P.DS_ITS ---
DS: Admitting Diagnosis Discharge Date 04/27/2024 Admitting Diagnosis Shortness of breath DS: Discharge Diagnosis Discharge Diagnosis (1) Multifocal pneumonia: Code(s): J18.9 - Pneumonia, unspecified organism Status: Acute (2) Dehydration: Code(s): E86.0 - Dehydration Status: Acute (3) Acute renal failure: Code(s): N17.9 - Acute kidney failure, unspecified Status: Acute (4) Macrocytic anemia: Code(s): D53.9 - Nutritional anemia, unspecified Status: Acute (5) Hypothyroidism: Code(s): E03.9 - Hypothyroidism, unspecified Status: Acute (6) Diet-controlled type 2 diabetes mellitus: Code(s): E11.9 - Type 2 diabetes mellitus without complications Status: Acute (7) Hypertension: Code(s): I10 - Essential (primary) hypertension Status: Acute (8) Hypotension due to hypovolemia: Code(s): E86.1 - Hypovolemia Status: Acute (9) Severe sepsis: Code(s): A41.9 - Sepsis, unspecified organism; R65.20 - Severe sepsis without septic shock Status: Acute DS: Summary Hospital Course Hospital Course: # severe sepsis Upon arrival to ED, patient was found have tachycardia, tachypnea, leukocytosis 13,500, meeting criteria of sepsis, possible resulting from multifocal pneumonia Received normal saline bolus 2 L in the ED, patient treated with IV fluid resuscitation Patient received azithromycin ceftriaxone IV in the ED, continue azithromycin ceftriaxone IV, increase ceftriaxone to 2 g IV daily Stop IV fluid. And will be switched to oral antibiotics #Community-acquired pneumonia Patient has a productive cough with week, and per blood shortness breath. Patient has yellow greenish sputum CT abdomen pelvis suggest multifocal pneumonia Antibiotics see above Switched to oral at discharge #Hypotension Likely resulting from sepsis and hypovolemia Received fluid resuscitation in the ED Treat underlying disease Continue resuscitation this has improved #CELESTINE Elevated creatinine 1.7, baseline 0.9 UA unremarkable Possible secondary to sepsis and hypotension Avoid nephrotoxic medication Follow-up BMP with improvement #Essential hypertension Hold hypertension medication because of hypotension # anemia hemoglobin down to 9.4 could be hemodilutional. No signs of bleeding. Will continue to monitor and remained stable. He will need to follow up as an outpatient basis. # cocaine use/Alcohol use discussed and counseled on abstinence # hypothyroidism not on any medication follow-up with PCP # history of esophageal cancer status post surgical resection including partial gastrectomy and esophagectomy as well as chemo and radiation in the past. # DVT prophylaxis Lovenox # Code status full code Time Spent with Patient Time attestation: Total time spent providing and/or coordinating discharge services: 35 minutes Exam Narrative: GENERAL: Pleasant, in no acute distress. Well-nourished. - EYES: EOMI. Anicteric. - HENT: Moist mucous membranes. - LUNGS: Coarse breath sound on the lef t lower base. - CARDIOVASCULAR: Regular rate and rhyth m. No murmur. No JVD. - ABDOMEN: Soft, non-tender and non-dist ended. No palpable masses. - EXTREMITIES: No edema. Peripheral puls es 2+. Non-tender. - NEUROLOGIC: No focal neurological defi cits. CN II-XII grossly intact. - PSYCHIATRIC: Awake, Alert and oriented x 3. Appropriate mood and affect. - SKIN: No rashes or lesions. Warm. - LYMPH: No cervical lymphadenopathy. DS: Data Data Completed and Pending Labs on day of discharge: Labs from last 24 hours 04/27/24 06:02 WBC 4.3 L RBC 2.78 L Hgb 9.1 L Hct 27.4 L MCV 98.6 MCH 32.7 MCHC 33.2 RDW 16.0 H Plt Count 380 H MPV 9.5 Immature Gran % (Auto) 2.6 H Neut % (Auto) 63.7 Lymph % (Auto) 20.7 [place] % (Auto) 8.6 H Eos % (Auto) 2.8 Baso % (Auto) 1.6 H Lymph # (Auto) 0.89 L [place] # (Auto) 0.4 Eos # (Auto) 0.1 Baso # (Auto) 0.1 Abs Immat Gran (auto) 0.11 H Absolute Neuts (auto) 2.7 Absolute Nucleated RBC 0.000 Nucleated RBC % 0.0 Sodium 136 L Potassium 3.8 Chloride 104 Carbon Dioxide 25 Anion Gap 7 BUN 9 Creatinine 1.30 Estim Creat Clear Calc 49 Estimated GFR > 60 Glucose 67 Calcium 7.9 L Magnesium 1.9 Total Bilirubin 0.2 AST 101 H ALT 62 H Alkaline Phosphatase 95 Total Protein 6.0 L Albumin 3.2 L Preliminary micro results at discharge 04/24/24 00:24 Blood Culture - Preliminary Blood 04/24/24 00:13 Blood Culture - Preliminary Blood Imaging Radiologist's impression: ITS Impressions Chest/Abdomen/Pelvis CTA 04/23/24 22:57 IMPRESSION: No CT evidence of acute pulmonary embolus. Segmental/subsegmental right middle lobe and lingular opacities may represent atelectasis or pneumonia. Presumed round atelectasis in the medial left lung base. Small left pleural effusion. No acute abdominopelvic process detected. Discharge Plan Discharge Attending physician on discharge: Souleymane Britton Consulting providers: Hussein Reyes Discharging Clinician: Souleymane Britton Anticipated Discharge Date/Time: 04/27/24 11:43 Patient Disposition: Home, Self-Care Activity: as tolerated Diet: regular Patient Instructions: Antibiotic Form, Pain Management (DC) Stand Alone Forms: General Discharge Information Follow-up/Referrals: Hussein Reyes MD [Physician] - Discharge Medications: New azithromycin 500 mg tablet 500 mg PO DAILY 2 Days Qty: 2 0RF Rx Instructions: start on day 2 of therapy cefdinir 300 mg capsule 300 mg PO Q12H Qty: 8 0RF Continued tamsulosin 0.4 mg capsule 0.4 mg PO DAILY Qty: 30 0RF Date of admission: 04/26/24 13:03 Primary Care Provider: PHYSICIAN,PUBLIC HOUSING MANAGER Admitting Provider: Bridget Fuentes Attending physician on admission: Bridget Fuentes Condition: Stable
[2024-04-27 16:12] LABS: Free T4 Free Thyroxine Reflex < 0.07 ng/dL (0.78-2.19)
== END 2024-04-27 13:35 | disposition home or self-care (01) | DRG 720 ==
LOC: ANHED 04-24 00:36 → ANH3MEDSUR 04-24 01:03
PROVIDERS: Hospitalist; Admitting Provider Internal Medicine; Emergency Provider Emergency Medicine; Visit Provider Internal Medicine
DX: A41.9 Sepsis, unspecified organism (principal); R65.20 Severe sepsis without septic shock; J18.9 Pneumonia, unspecified organism; E86.0 Dehydration; N17.9 Acute kidney failure, unspecified; D53.9 Nutritional anemia, unspecified; E03.9 Hypothyroidism, unspecified; E86.1 Hypovolemia; E11.9 Type 2 diabetes mellitus without complications; I10 Essential (primary) hypertension; F14.90 Cocaine use, unspecified, uncomplicated; F10.90 Alcohol use, unspecified, uncomplicated; I11.0 Hypertensive heart disease with heart failure; I50.9 Heart failure, unspecified; Z85.01 Personal history of malignant neoplasm of esophagus; Z86.718 Personal history of other venous thrombosis and embolism; I25.2 Old myocardial infarction; Z87.891 Personal history of nicotine dependence
CPT/HCPCS: 36415; 71275; 74177; 80048; 80053; 80307; 81001; 82077; 83605; 83690; 83735; 83880; 84439; 84443; 84484; 85025; 87040; 96361; 96365; 96366; 96367; 96372; 99285; A9270; G0378; G0379; J0456; J0696; J1650; J7030; Q9967

== ENCOUNTER 2024-09-03 06:42 | Outpatient (CLI) | payer OTHER, SELFPAY ==
--- NOTE | ~2024-09-03 | US_ITS ---
RIGHT UPPER QUADRANT ABDOMINAL ULTRASOUND (Doppler ultrasound interrogation techniques used as needed for this exam.) Ordering provider: Hussein Reyes MD History: . ELEVATED LIVER ENZYMES . Comparison: None. FINDINGS: PANCREAS: Not well visualized. PORTAL VEIN: Hepatopedal flow demonstrated. LIVER: Normal size and echotexture. No focal hepatic lesions or perihepatic fluid collections are elizabeth ntified. BILIARY DUCTS: No intra or extrahepatic biliary dilation. Common bile duct measures 6.6 mm in diamete r which is normal for patient's age. GALLBLADDER: Normal. No stones, sludge, gallbladder wall thickening or pericholecystic fluid. Wall th ickness is 0.66 cm.. Negative sonographic Gar's sign. Aorta: Normal. IVC: Normal. FREE FLUID: None visualized within the upper abdomen. IMPRESSION: normal right upper quadrant ultrasound. Reviewed, dictated and finalized at location A.
--- NOTE | ~2024-09-03 | US_ITS ---
EXAMINATION: US thyroid DATE: 09/03/2024 07:56 INDICATION: Abnormal thyroid function tests. High TSH. TECHNIQUE: Multiple ultrasound images of the thyroid were obtained. COMPARISON: None. FINDINGS: The right thyroid lobe measures 1.9 x 0.6 x 0.6 cm. The left thyroid lobe measures 1.7 x 0.6 x 0.8 c m. There is normal echotexture and echogenicity throughout the thyroid gland. No discrete nodules id entified. Normal vascular flow is present. IMPRESSION: 1. Small thyroid. Reviewed, dictated and finalized at location B. IMPRESSION: 1. Small thyroid.
--- OUTSIDE RECORDS SUMMARY | 2024-09-03 06:45 | XMS_ITS | Referral Summary ---
Author Organization [facility] Address [address] [place] [address] Care Team Providers Care Track Moving Machine Operator Name Role Phone Unavailable Primary Care Provider Unavailabl e Source Comments [facility],non-[facility] Affiliates and Associated Physician Practices is amultiple site organization consisting of ambulatory clinics and hospital sitesin [place], [place], [place] and [place]. This disclosure is being madepursuant to the Care Everywhere program and may not contain all information available regarding this patient. Last updated 18.[facility] [employer] Social History Tobacco Use Types Packs/Day Years Used Date Smoking Tobacco: Never Assessed Sex and Gender Information Value Date Recorded Sex Assigned at Not on file Gender Identity Not on file Sexual Orientation Not on file Plan of Treatment Not on file Garrick Jaime Personal/Family Self 1960
--- OUTSIDE RECORDS SUMMARY | 2024-09-03 06:45 | XMS_ITS | Patient Health Summary ---
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 This disclosure is being madepursuant to the Care Everywhere program and may not contain all information available regarding this patient. Last updated 18.[facility] [employer] Social History Tobacco Use Types Packs/Day Years Used Date Smoking Tobacco: Never Assessed Sex and Gender Information Value Date Recorded Sex Assigned at Not on file Gender Identity Not on file Sexual Orientation Not on file
--- OUTSIDE RECORDS SUMMARY | 2024-09-03 06:45 | XMS_ITS | CONTINUITY OF CARE DOCUMENT ---
Author Name meghan debbiejoe Address Unknown Organization [facility] Address [address] [place] [address] [address] [place] [address] Phone [phone] Care Team Providers Care Debeader Name Role Phone Denny Longoria MD Unavailable ROSITA TSAI MD Unavailable [phone] ROSITA TSAI MD Unavailable [phone] PROBLEMS Condition Status Date Provider Notes Shortness of breath active Ange Ventimigl ia [facility] Hypertension benign essential active Ange Ventimiglia [facility] Benign prostatic hyperplasia (BPH) active A francisco Ventimiglia [facility] Esophageal cancer active Ange Ventimiglia [facility] Diabetes mellitus, type 2 active Ange Humza timiglia [facility] Hypothyroidism active Ange Ventimiglia FN P ENCOUNTERS Date Type Provider Location Encounter Diag nosis - In-person encounter Office Visit Denny Longoria MD [facility] Shortness of breathHypertension benign essentialBenign prostatic hyperplasia (BPH)Esophageal cancerDiabetes mellitus, type 2Hypothyroidism VITAL SIGNS Date Observation Value Provider Body Mass Index (Ratio) 23.18 kg/m2 Winsome Longoria MD blood pressure, diastolic 77 mm[Hg] Ashley Cho blood pressure, systolic 112 mm[Hg] Bina Cho blood pressure, cuff size regular Ashley Cho oxygen saturation, oximetry 100 % Aby Cho pulse rate 63 /min Aby Cho respiratory rate E&M 14 /min Aby Cho weight E&M 157 [lb_av] Aby Cho height E&M 69 [in_i] Aby Cho ALLERGIES No Known Drug Allergies HISTORY OF MEDICATION USE Medication Status Instructions Dates Provider Indications Com ments levothyroxine 50 mcg tablet active Ange Chrismiglia [facility] azithromycin 500 mg tablet active Aby Cho tamsulosin 0.4 mg capsule active Aby Cho cefdinir 300 mg capsule active Aby Cho ergocalciferol (vitamin D2) 1,250 mcg (50,000 unit) capsule active Aby Cho SOCIAL HISTORY Date Observation Value Provider drug use, illicit, drug of choice cocaine Ange Ventimiglia [facility] drug use yes Ange Ventimig [place] [facility] alcohol use yes Ange Ventimig [place] [facility] smoking status Former smoker Angemandy Perez miglia [facility] FAMILY HISTORY Family Member Condition Father CAD male <55 INSURANCE PROVIDERS Payer name Policy type / Coverage type [place] red republican ID [facility] Medicaid [id number] ADVANCE DIRECTIVES Name Date DISCUSSED - NO DECISION MADE TREATMENT PLAN Date Name Performer Cardiology:on replac ement therapy H is updated medication list for this problem includes: Levothyroxine 50 Mcg Tablet (Levothyroxine) Ange Ventimiglia [facility] Cardiology:on flomax Ange Vent imiglia [facility] Cardiology:diet control Ange V entimiglia [facility] Cardiology:BP 112/77 well contro lled, will monitor Ange Ventimiglia [facility] Cardiology:Patient p [facility] reports of increasing SOB with activity and associated fatigue. 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 He also has history of cocaine abuse wt last use 6 months ago per patient reports. Will do labs to look for any suggestion of CHF. Will do echo to look for any LV dysfunction or WMA. Ange Ventimiglia [facility] Date Name PROBNP, N TERMINAL BASIC METABOLIC PANE L W/EGFR Complete Echo
--- OUTSIDE RECORDS SUMMARY | 2024-09-03 06:45 | XMS_ITS | Encounter Summary ---
Author Organization [facility] Address [address] [place] [address] Care Team Providers Care Senior Trainer Name Role Phone Unavailable Primary Care Provider Unavailabl e Reason for Referral * Consultation (Routine) - Closed Specialty Diagnoses / Procedures Referred By Yovana t Referred To Contact ENT-Otolaryngology Diagnoses Hearing problem, bilateral Right ear effusion Hussein Reyes MD [address] [facility] [address] [place] [address] Referral ID Status Reason Start Date Expiration Date V isits Requested Visits Authorized [id number] Closed Specialty Services Required 05/30/2024 05/30/2025 1 1 [place] [facility] Encounter Details Date Type Department Care Team (Latest Contact Info) Description 05/30/2024 Transcribe Orders [facility] - Centralized Scheduling [facility] [place] [address] Hussein Reyes MD [address] [address] Hearing problem, bilateral Social History Tobacco Use Types Packs/Day Years Used Date Smoking Tobacco: Never Assessed Sex and Gender Information Value Date Recorded Sex Assigned at Not on file Gender Identity Not on file Sexual Orientation Not on file documented as of this encounter Plan of Treatment Scheduled Referrals Name Type Priority Associated Diagnoses Order Schedule AMB REFERRAL TO ENT Outpatient Referral Routine Hearing problem, bilateral 1 Occurrences starting 05/30/2024 until 05/30/2025 documented as of this encounter Visit Diagnoses Diagnosis Hearing problem, bilateral- Primary documented in this encounter
--- OUTSIDE RECORDS SUMMARY | 2024-09-03 06:45 | XMS_ITS | Clinical Summary ---
Author Organization 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 Oncology and Hematology - [place]gor [address] [place] [address] Rachel Villegas MD [address] [place] [address] Health Maintenance Due Date Last Done Comments DTAP/TDAP/TD VACCINES (1 - Tdap) 11/19/1979 Preventative Visit-Managed Medicaid 11/19/1979 COLORECTAL SCREENING 2005 Colorectal Cancer Screening 2005 FIT-DNA Q 3 years 2005 FIT/FOBT Q 1 year 2005 Flex Sig/CT Colonography Q 5 years 2005 ZOSTER VACCINE (1 of 2) 2010 INFLUENZA VACCINE (#1) 2024 RSV VACCINE (60+ or ) (1 - 1-dose 75+ series) 11/19/2035 Insurance MEDICAID [place]
--- OUTSIDE RECORDS SUMMARY | 2024-09-03 06:45 | XMS_ITS | Clinical Summary ---
Author Organization [facility] Address [address] [place] [address] Care Team Providers Care Service Specialist Name Role Phone Unavailable Primary Care Provider Unavailabl e Source Comments [facility],non-owned Affiliates and Associated Physician Practices is amultiple site organization consisting of ambulatory clinics and hospital sitesin [place], [place], [place] and [place]. This disclosure is being madepursuant to the Care Everywhere program and may not contain all information available regarding this patient. Last updated 18.[facility] Social History Tobacco Use Types Packs/Day Years Used Date Smoking Tobacco: Never Assessed Sex and Gender Information Value Date Recorded Sex Assigned at Not on file Gender Identity Not on file Sexual Orientation Not on file Plan of Treatment Health Maintenance Due Date Last Done Comments COLOGUARD (AGES 45-75) - COL ON CA SCREENING 1960 COLON MONITORING 1960 COLONOSCOPY - COLON CA SCREENING 1960 CT COLONOGRAPHY - COLON CA SCREENING 1960 Colorectal Cancer Screening 1960 FIT - COLON CA SCREENING 1960 FLEX SIG - COLON CA SCREENING 1960 LIPID TESTING 1960 HIV SCREENING 11/19/1975 HEPATITIS C SCREENING 11/14/1978 DTAP/TDAP/TD VACCINES (1 - Tdap) 11/19/1979 PNEUMOCOCCAL VACCINE 50+ (1 of 1 - PCV) 2010 ZOSTER VACCINE (1 of 2) 2010 COVID-19 VACCINE (1 - 2023-2 5 season) 2024 INFLUENZA VACCINE (#1) 2024 DEPRESSION SCREENING 06/26/2024 Respiratory Syncytial Virus (RSV) Vaccine Pt: or over 60 yrs (1 - 1-dose 75+ series) 11/19/2035 HEPATITIS B VACCINE Aged Out No longe r eligible based on patient's age to complete this topic HIB VACCINE Aged Out No longer eligi ble based on patient's age to complete this topic HPV VACCINE Aged Out No longer eligi ble based on patient's age to complete this topic MENINGOCOCCAL (Group B) VACCINE Aged Out No longer eligible based on patient's age to complete this topic MENINGOCOCCAL VACCINE Aged Out No qamar josue eligible based on patient's age to complete this topic PNEUMOCOCCAL VACCINE Aged Out No long er eligible based on patient's age to complete this topic Garrick Jaime Personal/Family Self 1960
== END 2024-09-03 06:43 | disposition home or self-care (01) ==
PROVIDERS: PCP Emergency Medicine; Visit Provider Emergency Medicine
DX: R74.8 Abnormal levels of other serum enzymes (principal)
CPT/HCPCS: 76536; 76705